=== PATIENT | female | born 1985 | race Two or more races ===

== ENCOUNTER → 2019-11-04 15:16 | Outpatient (CLI) | payer OTHER, SELFPAY ==
--- NOTE | ~2019-11-04 | US_ITS ---
EXAMINATION: US OB transvaginal DATE: 11/04/2019 15:38 INDICATION: Uncertain dates. TECHNIQUE: Real-time transvaginal pelvic ultrasound was performed. COMPARISON: None. FINDINGS: The uterus measures 10.2 x 6.8 x 7.8 cm. There is an intrauterine gestational sac. A yolk sac is jordan ntified. The crown rump length measures 1.7 cm, which correlates with an estimated gestational age of 8 weeks and 0 day(s) (+/-) 5 day(s). heart motion is identified measuring 178 beats per minute (bpm) by M-mode Doppler. There is a small subchorionic hematoma. There are nabothian cysts in the cervix. The right ovary measures 2.6 x 2.1 x 2.8 cm. The left ovary measures 2.0 x 1.1 x 1.9 cm. There is no free fluid in the pelvis. IMPRESSION: 1. Single living intrauterine gestation with estimated date of delivery of 06/15/2020. 2. Small subchorionic hematoma. Reviewed, dictated and finalized at location A.
== END ==
PROVIDERS: PCP Family Medicine; Visit Provider Obstetrics & Gynecology Gynecology
DX: O46.90 Antepartum hemorrhage, unspecified, unspecified trimester (principal); Z3A.00 Weeks of gestation of pregnancy not specified
CPT/HCPCS: 76817

== ENCOUNTER → 2019-11-18 16:13 | Outpatient (CLI) | payer OTHER, SELFPAY ==
--- NOTE | ~2019-11-18 | US_ITS ---
EXAMINATION: US OB <= 14 weeks fetus DATE: 11/18/2019 16:44 INDICATION: Subchorionic hemorrhage TECHNIQUE: Real-time transabdominal obstetric ultrasound. FINDINGS: Ultrasound dated 11/04/2019 The uterus measures 11.7 x 6.4 x 7.6 cm. There is an intrauterine gestational sac, with pole id entified. The crown rump length measures 3.59 cm.. There is a small subchorionic hemorrhage measurin g 1.7 x 0.6 x 1 cm. heart tones are identified measuring 142 BPM. IMPRESSION: 1. SL IUP with an EGA of 10 weeks, 0 days (EDC by initial ultrasound of 06/15/2020). 2: Small subchorionic hemorrhage. Reviewed, dictated and finalized at location A. IMPRESSION: 1. SL IUP with an EGA of 10 weeks, 0 days (EDC by initial ultrasound of 020). 2: Small subchorionic hemorrhage.
== END ==
PROVIDERS: Visit Provider Obstetrics & Gynecology Gynecology
DX: O36.8910 Maternal care for other specified fetal problems, first trimester, not applicable or unspecified (principal); Z3A.10 10 weeks gestation of pregnancy
CPT/HCPCS: 76801

== ENCOUNTER 2019-12-11 00:21 | Day surgery (SDC) | payer OTHER, SELFPAY ==
[2019-12-09 13:57] VITALS: BMI 64.2
--- NOTE | 2019-12-10 17:48 | WPDANESEPP ---
Anes - Eval Pre Procedure Procedure: Operation Date: 12/11/19 10:45 Proposed Procedures p Cervical Cerclage - Guru Mijares MD Date/Time: 12/10/19 17:48 Pre Op Diagnosis: incompetent cervix Patient Data Age: 34 Gender: F Height: 5 ft 1 in Weight: 154.22 kg Allergies Allergy/AdvReac Type Severity Reaction Status Date / Time almond Allergy Severe Swelling Verified 09/17/19 12:04 Home Medications Medication Instructions Recorded Confirmed Type labetalol 100 mg tablet 100 mg PO Q12H #60 tablet 11/20/19 12/09/19 Rx hkzdhiepww-sjocvotduuizl-xcbi 1 tablet PO Q6H PRN 12/09/19 12/09/19 History fluticasone propionate [Flonase 1 spray INTRANASAL DAILY PRN 12/09/19 12/09/19 History Allergy Relief] loratadine-pseudoephedrine 1 tablet PO Q12H PRN 12/09/19 12/09/19 History [Claritin-D 12 Hour] 21-iron fu-folic acid 1 tablet PO DAILY 12/09/19 12/09/19 History [ Complete] Patient hx anesthesia problems: none Family hx anesthesia problems: none PMFSH Past Medical History Medical History (Updated 12/10/19 @ 17:49 by Arnold Caceres CRNA) Hypertension IBS (irritable bowel syndrome) Morbid obesity COSME on CPAP Osteoarthritis of left knee Surgical History Surgical History History of meniscectomy of left knee History of tonsillectomy Family History Family History Mother Diabetes mellitus Grandparent Hypertension Malignant neoplasm of prostate Mother Diabetes mellitus Fibromyalgia Thrombocytopathy Grandparent Skin cancer Other Carcinoma of colon Social History Social History (System 09/17/19 @ 12:04 by Jannie Kauffman) Smoking status: Former smoker (quit 2012) Second hand tobacco smoke exposure: No Smoking end date: 08/14/10 Alcohol intake: current Substance use: never Substance use type: does not use Exam Day of Procedure 12/10/19 17:48
[2019-12-11] VITALS (11 sets, daily range): BP systolic 93–145; BP diastolic 60–91; PULSE 63–74; RESP 12–18; TEMP 36.4–36.7; O2SAT 100
[2019-12-11] MEDS: LACTATED RINGERS 1,000 ML 30 ML IV CONT (09:33)
--- NOTE | 2019-12-11 09:44 | PM.HPGS ---
History of Present Illness History of Present Illness Consent: Risks, benefits, and alternatives have been discussed and questions answered. Patient agrees to proceed with procedure. Chief complaint: incompetent cervix Narrative: . Lesvia Duckworth is a 34 year old female @ 14 weeks dated by a first trimester ultrasound. Pregancy complicated by incompetent cervix with delivery x2 , cerclage with last , morbidly obese, and chtn. Patient also had subchorionic hemorrhage on last ultrasound. [facility] Past Medical History Medical History Hypertension IBS (irritable bowel syndrome) Morbid obesity COSME on CPAP Osteoarthritis of left knee Surgical History Surgical History History of meniscectomy of left knee History of tonsillectomy Family History Family History Mother Diabetes mellitus Grandparent Hypertension Malignant neoplasm of prostate Mother Diabetes mellitus Fibromyalgia Thrombocytopathy Grandparent Skin cancer Other Carcinoma of colon Social History Social History Smoking status: Former smoker (quit 2012) Second hand tobacco smoke exposure: No Smoking end date: 08/14/10 Alcohol intake: current Substance use: never Substance use type: does not use Meds Home Medications and Allergies Home Medications Medication Instructions Recorded Confirmed Type labetalol 100 mg tablet 100 mg PO Q12H #60 tablet 11/20/19 12/09/19 Rx saiebwmzmu-fggorxxrsmmbp-jfoo 1 tablet PO Q6H PRN 12/09/19 12/09/19 History fluticasone propionate [Flonase 1 spray INTRANASAL DAILY PRN 12/09/19 12/09/19 History Allergy Relief] loratadine-pseudoephedrine 1 tablet PO Q12H PRN 12/09/19 12/09/19 History [Claritin-D 12 Hour] 21-iron fu-folic acid 1 tablet PO DAILY 12/09/19 12/09/19 History [ Complete] Allergies Allergy/AdvReac Type Severity Reaction Status Date / Time almond Allergy Severe Swelling Verified 12/11/19 09:46 Exam Const: General: no acute distress GI: GI Palp: Yes Soft to palpation Other: BSUS showed positive movement and heart beat at 160s : External Female Exam: normal external appearance Assessment and Plan Assessment and plan (1) Incompetence of cervix: Code(s): N88.3 - Incompetence of cervix uteri Status: Acute Assessment and Plan: Patient scheduled for a cerclage cervical. Risk and benefits reviewed in detail with patient. Patient agrees to proceed with surgery.
--- NOTE | 2019-12-11 09:53 | WPDANESEFPP ---
Anes - Eval Final PreProcedure Day of Procedure 12/11/19 09:53 Patient weight: super morbidly obese Heart: regular rate and rhythm Lungs: decreased breath sounds Airway: Mallampati scale class II Neurological: alert and oriented Last oral intake: >/= 8 hours ASA classification: III Emergent: no Anesthetic plan: proceed Anesthesia type and monitoring: regional spinal and standard monitoring Other findings: heart tones per Dr. Mijares Informed Consent: The patient's anesthetic plan and its attendant risks and benefits were discussed with the patient/family/POA. Questions were solicited and answers provided to the satisfaction of the patient/family/POA.
--- NOTE | 2019-12-11 11:32 | SUR.OPER ---
heart tones obtained via u/s by dr. montemayor fhts in 150s
--- NOTE | 2019-12-11 11:37 | PM.OP ---
Procedure Note - Brief Procedure Note - Brief Date of procedure: 12/11/19 Pre-op diagnosis: incompetent cervix Post-op diagnosis: same Procedure performed: blair cerclage Anesthesia: spinal Surgeon: Guru Mijares MD Estimated blood loss (mL): 10 Drains: No Packing: No Pathology: none sent Complications: None Condition: stable Disposition: observation Findings: soft cervix external os 1 cm internal os closed
[2019-12-11] MEDS: INDOMETHACIN 25 MG CAPSULE 50 MG PO (13:46)
--- NOTE | 2019-12-11 13:51 | SUR.PHASEII ---
1330 pt having abdominal cramping pain 01/21. dr horn notified but hesitant to give pt anything due to she had a spinal for anesthesia, need ok from dr montemayor. notifed dr montemayor and she gave me new orders for Indomethacin 50mg po once, then going to send her home with this for cramping.
--- NOTE | 2019-12-11 14:53 | SUR.PHASEII ---
[address] horn on pt condition of her feet tingling and not feeling anything when touching feet. this is normal takes longer then others to get ffeling back. 1450 karel bindery helper, reiterated to pt/spouse on what dr horn said.
--- NOTE | 2019-12-11 16:01 | SUR.PHASEII ---
[address] montemayor' office, dr montemayor will be sending a prescription for indomethacin to [facility] for pt to roll picker
--- NOTE | 2019-12-12 07:54 | OP_ITS ---
DATE OF PROCEDURE: 12/11/2019 PREOPERATIVE DIAGNOSIS: Incompetent cervix. POSTOPERATIVE DIAGNOSIS: Incompetent cervix. PROCEDURE PERFORMED: Maldonado cerclage. ANESTHESIA: Spinal with mild IV sedation. COMPLICATIONS: None. ESTIMATED BLOOD LOSS: 10 cc. DESCRIPTION OF PROCEDURE: The patient was taken to the operating room, IV running. After adequate anesthesia, she was placed in a dorsal lithotomy position. A vaginal weighted speculum was placed into the vagina and Ryan retractor was placed at the anterior portion of vagina for reflection of bladder. The anterior and posterior lip of the cervix was grasped with ring forceps and Mersilene tape. A stitch was placed at the 2, 11, 7, and 4 position of the cervix and this suture was tied and cut. A second suture of 2-0 silk was used to reinforce the Mersilene knot at the 2 o'clock position. The ring forceps were removed. Weighted speculum and Ryan retractors were removed, noted a small abrasion on the vaginal wall. Silver nitrate x1 was applied for hemostasis. Sponge, lap, and needle counts were correct x2. The patient tolerated the procedure well. D I MT: Odilia
== END 2019-12-11 15:50 | disposition home or self-care (01) ==
PROVIDERS: PCP Family Medicine; Visit Provider Obstetrics & Gynecology
PROC: 0UVC7ZZ Restriction of Cervix, Via Natural or Artificial Opening (ICD-10-PCS; CPT 57700; principal; 2019-12-11 10:45)
DX: O34.32 Maternal care for cervical incompetence, second trimester (principal); Z3A.14 14 weeks gestation of pregnancy; O10.012 Pre-existing essential hypertension complicating pregnancy, second trimester; O99.212 Obesity complicating pregnancy, second trimester; E66.01 Morbid (severe) obesity due to excess calories; Z87.891 Personal history of nicotine dependence
CPT/HCPCS: 59320; A9270; J2250; J2274; J2370; J2704; J3010; J7120

== ENCOUNTER 2019-12-16 14:54 | Outpatient (CLI) | payer OTHER, SELFPAY ==
--- NOTE | ~2019-12-16 | US_ITS ---
EXAMINATION: US OB limited DATE: 12/16/2019 15:35 INDICATION: Subchorionic hemorrhage. TECHNIQUE: Real-time transabdominal obstetric ultrasound. FINDINGS: Ultrasound dated 11/18/2019 The uterus measures 1.6 x 9.5 x 10 cm. There is an intrauterine gestational sac, with pole iden tified. The heart rate is 1 55 bpm. There is a small subchorionic hemorrhage anteriorly measur ing 1.4 x 1 x 1 cm. Amniotic fluid is subjectively normal. Placenta is anterior. IMPRESSION: 1. Small subchorionic hemorrhage anteriorly measuring 1.4 x 1 x 1 cm. 2: Single living intrauterine with heart rate measuring 155 BPM. Reviewed, dictated and finalized at location A. IMPRESSION: 1. Small subchorionic hemorrhage anteriorly measuring 1.4 x 1 x 1 cm. 2: Single living intrauterine with heart rate measuring 155 BP .
== END 2019-12-16 14:55 | disposition home or self-care (01) ==
PROVIDERS: PCP Family Medicine; Visit Provider Obstetrics & Gynecology Gynecology
DX: O36.8920 Maternal care for other specified fetal problems, second trimester, not applicable or unspecified (principal)
CPT/HCPCS: 76815

== ENCOUNTER 2020-01-14 15:49 | Outpatient (CLI) | payer OTHER, SELFPAY ==
--- NOTE | ~2020-01-14 | US_ITS ---
EXAMINATION: US OB /maternal detail DATE: 01/14/2020 16:39 INDICATION: anatomic survey. TECHNIQUE: Real-time ultrasound of the pelvis was performed. COMPARISON: Ultrasound 12/16/2019, 11/18/2019, 11/04/2019 FINDINGS: There is a single living fetus in variable presentation. The placenta is anterior, 1.6 cm from the c ervix. heart rate is 145 beats per minute (bpm). There is no subchorionic hematoma. The amnioti c fluid volume is subjectively normal. The following biometric data were obtained: Biparietal diameter (BPD): 4.3 cm; head circumference (HC): 16.2 cm; abdominal circumference (AC): 13 .5 cm; femur length (FL): 2.6 cm. These measurements are concordant. Estimated weight is 242 g +/- 36 g, which correlates with 67th percentile when 06/15/20 is used as estimated date of delivery. As single measurements, these parameters are each equal to the following estimated gestational ages: BPD: 18 weeks 6 days. HC: 19 weeks 0 days. AC: 19 weeks 0 days. FL: 17 weeks 6 days. estimated gestational age based solely on measurements from this exam is 18 weeks 5 days +/- 1 weeks 2 days. The cerebral ventricles, cerebellum, cisterna magna, nuchal fold, and visualized portions of the spin e are normal. The diaphragm, stomach, kidneys, and bladder are normal. There are two umbilical arteri es to yield a 3-vessel cord. The cord insertion is normal. The heart is not well-visualized. IMPRESSION: 1. Single living fetus in variable presentation. 2. Estimated weight is 242 g +/- 36 g, which correlates with 67th percentile when 06/15/20 is u sed as estimated date of delivery. This date was set by ultrasound on 11/04/19. 3. Low-lying placenta. 4. heart not well visualized. Otherwise normal anatomic survey. Reviewed, dictated and finalized at location A. IMPRESSION: 1. Single living fetus in variable presentation. 2. Estimated weight is 242 g +/- 36 g, which correlates with 67th percen tile when 06/15/20 is used as estimated date of delivery. This date was set by [facility] on 11/04/19. 3. Low-lying placenta. 4. heart not well visualized. Otherwise normal anatomic survey.
== END 2020-01-14 15:50 | disposition home or self-care (01) ==
PROVIDERS: PCP Family Medicine; Visit Provider Obstetrics & Gynecology Gynecology
DX: Z36.89 Encounter for other specified antenatal screening (principal); O44.42 Low lying placenta NOS or without hemorrhage, second trimester
CPT/HCPCS: 76805

== ENCOUNTER 2020-03-22 16:36 | Emergency (ER) | payer OTHER, SELFPAY ==
[2020-03-22 16:44] VITALS: BP 151/97; PULSE 92; RESP 17; TEMP 36.8; O2SAT 100
--- NOTE | 2020-03-22 17:17 | ED.GENADULT ---
HPI - General Adult General Chief complaint: Recheck/Abnormal Lab/Rx Stated complaint: High BP, 27 weeks Time Seen by Provider: 03/22/20 17:07 History of Present Illness HPI narrative: Headache every day for the past 4 days. bitemporal. Associated with occasional visual symptoms. Feels like her usual migraines, but more intense. She was concerned because her blood pressure has been more elevated than usual for the past 2 days. No nausea, vomiting, fever, weakness. Related Data Home Medications Medication Instructions Recorded Confirmed atxdipvvdd-feevbaiqvqkpe-wyfp 1 tablet PO Q6H PRN 12/09/19 12/11/19 fluticasone propionate [Flonase 1 spray INTRANASAL DAILY PRN 12/09/19 12/11/19 Allergy Relief] loratadine-pseudoephedrine 1 tablet PO Q12H PRN 12/09/19 12/11/19 [Claritin-D 12 Hour] 21-iron fu-folic acid 1 tablet PO DAILY 12/09/19 12/11/19 [ Complete] Allergies Allergy/AdvReac Type Severity Reaction Status Date / Time almond Allergy Severe Swelling Verified 03/22/20 16:50 Review of Systems Review of Systems: All systems reviewed & are unremarkable except as noted in HPI and below Constitutional: Constitutional: Denies fever(s) Eyes: Eyes: Reports change in vision Cardiovascular: Cardiovascular: Denies chest pain Respiratory: Respiratory: Denies dyspnea Gastrointestinal: Gastrointestinal: Denies abdominal pain, Denies nausea and Denies vomiting Genitourinary: Genitourinary: Denies hematuria and Denies dysuria [facility] Past Medical History Medical History (Updated 03/23/20 @ 00:00 by Background Daemon) Hypertension IBS (irritable bowel syndrome) Incompetence of cervix Morbid obesity COSME on CPAP Osteoarthritis of left knee Surgical History Surgical History History of meniscectomy of left knee History of tonsillectomy Social History Social History Smoking status: Former smoker (quit 2012) Second hand tobacco smoke exposure: No Smoking end date: 08/14/10 Alcohol intake: current Substance use: never Substance use type: does not use Gender identity (if verbalized by the patient): Female Exam Const: General: healthy appearing, no acute distress and alert Orientation/consciousness: patient oriented x3 HENMT: Head: normal to inspection Ears: TM's normal bilaterally Face and sinus: normal facial exam Mouth: Yes moist mucous membranes Eyes: Pupils: Equal, round and reactive pupils present EOM: EOMs intact bilaterally Resp: Effort & Inspection: normal respiratory effort Auscultation: clear to auscultation bilaterally, no rales, no rhonchi and no wheezes Cardio: Jugular venous distension: no JVD Rate: regular rate Rhythm: regular rhythm Heart sounds: no murmurs Skin: General skin exam: normal color Neuro: General: patient oriented x3, moves all extremities and CN's II-XI intact bilaterally Speech: normal speech Psych: Appearance: well kempt Affect: normal affect Course Vital Signs Vital signs: Vital Signs Temperature 36.8 C 03/22/20 16:44 Pulse Rate 92 03/22/20 16:44 Respiratory Rate 17 03/22/20 16:44 Blood Pressure 151/97 H 03/22/20 16:44 Pulse Oximetry 100 03/22/20 16:44 Temperature 36.8 C 03/22/20 16:44 Pulse Rate 90 03/22/20 19:02 Respiratory Rate 17 03/22/20 19:02 Blood Pressure 147/94 H 03/22/20 19:02 Pulse Oximetry 97 03/22/20 19:02 Medical Decision Making MDM Narrative Medical decision making narrative: VU resolved with treament. BP relatively mildly elevated. She will need recheck with PCP. Medical Records Medical records reviewed: Yes I reviewed the patient's medical records. Vital Signs Vital Signs: Vital Signs Temperature 36.8 C 03/22/20 16:44 Pulse Rate 92 03/22/20 16:44 Respiratory Rate 17 03/22/20 16:44 Blood Pressure 151/97 H 03/22/20 16:44 Pulse Ox
[2020-03-22] MEDS: METOCLOPRAMIDE HCL INJ 10 MG/2 ML VIAL IV PUSH (18:17)
[2020-03-22] MEDS: diphenhydrAMINE HCl INJ 50 MG/ML VIAL 25 MG IV PUSH (18:17)
[2020-03-22] MEDS: SODIUM CHLORIDE 0.9% IV 1,000 ML 999 ML IV CONT (18:18)
[2020-03-22 19:02] VITALS: BP 147/94; PULSE 90; RESP 17; O2SAT 97
[2020-03-22 19:35] LABS: Add Urine Microscopic? YES; Appearance Urine Cloudy (Clear); Bacteria Urine Trace /hpf; Bilirubin Urine Negative (Negative); Blood Urine Negative (Negative); Color Urine Yellow (Yellow); Glucose Urine UA Negative (Negative); Ketones Urine Trace mg/dL (Negative); Leukocyte Esterase Ur 3+ LEU/UL (Negative); Mucus Urine Rare /lpf; Nitrate Urine Negative (Negative); Protein Urine Negative (Negative); Specific Grav Ur 1.026 (1.001-1.035); Squamous Epithelial Cell Urine Many /hpf (Few); Urobilinogen Urine Negative mg/dL (<2.0); WBC Urine >75 /hpf
== END 2020-03-22 20:01 | disposition home or self-care (01) ==
PROVIDERS: Emergency Provider Emergency Medicine; PCP Family Medicine
DX: G43.909 Migraine, unspecified, not intractable, without status migrainosus (principal); E66.01 Morbid (severe) obesity due to excess calories; Z68.43 Body mass index [BMI] 50.0-59.9, adult; G47.33 Obstructive sleep apnea (adult) (pediatric); M17.12 Unilateral primary osteoarthritis, left knee; Z87.891 Personal history of nicotine dependence; R82.998 Other abnormal findings in urine
CPT/HCPCS: 81001; 87086; 87088; 96374; 96375; 99284; J0131; J1200; J2765; J7030

== ENCOUNTER 2020-04-06 18:18 | Outpatient (CLI) | payer OTHER, SELFPAY ==
[2020-04-06 18:30] VITALS: BP 145/62; PULSE 83
[2020-04-06 18:33] VITALS: BP 139/83; PULSE 80
[2020-04-06 19:02] VITALS: BP 146/65; PULSE 71
[2020-04-06 19:09] VITALS: BP 146/71
[2020-04-06 19:17] VITALS: BP 132/62; PULSE 69
[2020-04-06 19:18] LABS: Basophils Percent Auto 0.2 % (0.2-1.2); Eosinophils Absolute Auto 0.3 K/mm3 (0-0.3); Eosinophils Percent Auto 2.8 % (0-4.4); Hematocrit 32.1 % (37.0-47.0); Hemoglobin 10.1 g/dL (12.0-15.0); Immature Granulocyte Absolute 0.05 K/mm3 (0.00-0.031); Immature Granulocyte Percent A 0.5 % (0-0.5); Lymphocytes Absolute Auto 2.11 K/mm3 (0.9-3.2); Mean Corpuscular HGB Conc 31.5 g/dl (32-36); Mean Corpuscular Volume 82.5 fl (80-100); Mean Platelet Volume 10.3 fl (7.4-10.4); Monocytes Absolute Auto 0.5 K/mm3 (0.1-0.6); Monocytes Percent Auto 5.6 % (2.6-8.5); Neutrophils Absolute Auto 6.2 K/mm3 (1.3-6.7); Neutrophils Percent Auto 67.9 % (45.5-73.1); Platelet Count Result 278 k/mm3 (150-375); Red Blood Count 3.89 M/mm3 (4.2-5.4); Red Cell Distribution Width 15.8 % (11.5-14.5); White Blood Count 9.2 K/mm3 (4.5-10.0)
[2020-04-06 19:23] LABS: Creatinine Urine 39.4 mg/dL; Total Protein Urine Random 17 mg/dL
[2020-04-06 19:26] LABS: Add Urine Microscopic? YES; Appearance Urine Cloudy (Clear); Bacteria Urine 3+ /hpf; Bilirubin Urine Negative (Negative); Blood Urine 3+ (Negative); Color Urine Yellow (Yellow); Glucose Urine UA Negative (Negative); Ketones Urine Negative (Negative); Leukocyte Esterase Ur 3+ LEU/UL (NEGATIVE); Mucus Urine Rare /lpf; Nitrate Urine Negative (Negative); Protein Urine Negative (Negative); Specific Grav Ur 1.006 (1.001-1.035); Squamous Epithelial Cell Urine Many /hpf (Few); Urobilinogen Urine Negative mg/dL (<2.0); WBC Urine >75 /hpf (0-3)
[2020-04-06 19:31] VITALS: BP 128/67; PULSE 76
[2020-04-06 19:37] LABS: Alanine Aminotransferase 36 U/L (4-35); Albumin Level 3.3 g/dL (3.5-5.1); Alkaline Phosphatase 97 U/L (38-126); Anion Gap 6 mmol/L (8-16); Aspartate Amino Transferase 26 U/L (14-36); Bilirubin,Total < 0.1 mg/dL (0.2-1.3); Blood Urea Nitrogen 4 mg/dL (7-17); Calcium 8.4 mg/dL (8.4-10.2); Carbon Dioxide 20 mmol/L (22-30); Chloride 107 mmol/L (98-107); Estimated Glomerular Filt Rate > 60; Glucose 118 mg/dL (65-105); Potassium 3.5 mmol/L (3.4-5.0); Sodium 133 mmol/L (137-145); Uric Acid 4.2 mg/dL (2.5-7.5)
== END 2020-04-06 20:07 | disposition home or self-care (01) ==
LOC: ANHOBOP 18:23 → ANHOBPP 19:05
PROVIDERS: PCP Family Medicine; Visit Provider Obstetrics & Gynecology Gynecology
DX: O13.9 Gestational [pregnancy-induced] hypertension without significant proteinuria, unspecified trimester (principal); Z3A.00 Weeks of gestation of pregnancy not specified
CPT/HCPCS: 36415; 59025; 80053; 81001; 82570; 84156; 84550; 85025; 87086; 87088; 99199

== ENCOUNTER 2020-04-08 11:04 | Outpatient (CLI) | payer OTHER, SELFPAY ==
[2020-04-08 11:13] VITALS: BMI 64.3
[2020-04-08 13:23] LABS: Collection Time Urine 24 HOURS
[2020-04-08 13:31] LABS: Creatinine Urine 68.1 mg/dL; Patient Weight 340 Lbs; Total Protein Urine Random 13 mg/dL
[2020-04-08 13:38] LABS: Creatinine Clearance Urine 216.8 ml/min (75-125); Total Volume 24 Hour Urine 2500 ml
[2020-04-08 13:41] LABS: Specific Gravity Ur 1.009
[2020-04-08 16:41] LABS: Total Protein Urine 24 Hr 13 MG/DAY (28-141)
== END 2020-04-08 11:05 | disposition home or self-care (01) ==
LOC: ANHOBOP 11:10
PROVIDERS: PCP Family Medicine; Visit Provider Obstetrics & Gynecology Gynecology
DX: Z34.90 Encounter for supervision of normal pregnancy, unspecified, unspecified trimester (principal); Z3A.00 Weeks of gestation of pregnancy not specified
CPT/HCPCS: 81050; 82575; 84156

== ENCOUNTER 2020-04-27 10:09 | Observation (INO) | payer OTHER, SELFPAY ==
[2020-04-27 10:31] VITALS: BP 148/91; PULSE 73
[2020-04-27 10:37] VITALS: BMI 64.5
--- NOTE | 2020-04-27 10:37 | OBADM ---
This patient, Lesvia Duckworth, admitted to the OB room OB Post 116 for observation. Patient/family oriented to hospital policies and general routines including ID bracelet, bed and alarms, visiting hours, pain management, procedures, bathroom and other care routines, personal items, smoking policy, room service/diet, and visiting hours. Patient/Family are encouraged to report perceived risks to care and to ask questions if they do not understand what they are told or what they should do.
[2020-04-27 10:46] VITALS: BP 153/79; PULSE 74
[2020-04-27 10:54] VITALS: BP 148/84; PULSE 68
[2020-04-27] MEDS: ONDANSETRON HCL ODT 4 MG TABLET PO (10:55)
--- NOTE | 2020-04-27 11:07 | PC.NURSE ---
1044- Spoke with Dr. Garibay, Orders for ODT zofran. If patient can keep down liquids after, may be discharged to home.
--- NOTE | 2020-04-27 12:09 | PC.NURSE ---
1201- Spoke with Dr. Garibay, patient states she is feeling much better, nausea is gone. Headache still remains the same. Per Dr. Garibay patient may be discharged to home with Zofran ODT tabs X 10, patient may take Tylenol at home.
--- NOTE | 2020-05-18 09:09 | PM.OBTRLD ---
OB - Triage/Final Diagnosis Final Diagnosis (1) Nausea & vomiting: Code(s): R11.2 - Nausea with vomiting, unspecified Status: Acute (2) Dizziness: Code(s): R42 - Dizziness and giddiness Status: Acute
== END 2020-04-27 12:23 | disposition home or self-care (01) ==
PROVIDERS: Admitting Provider Obstetrics & Gynecology Gynecology; PCP Family Medicine; Visit Provider Obstetrics & Gynecology Gynecology
DX: O21.9 Vomiting of pregnancy, unspecified (principal); R42 Dizziness and giddiness; Z3A.00 Weeks of gestation of pregnancy not specified
CPT/HCPCS: 59025; A9270; G0378; G0379

== ENCOUNTER 2020-05-04 15:41 | Outpatient (RCR) | payer OTHER, SELFPAY ==
[2020-05-04 16:40] VITALS: BP 155/82; PULSE 82
[2020-05-04 17:17] LABS: Basophils Percent Auto 0.3 % (0.2-1.2); Eosinophils Absolute Auto 0.2 K/mm3 (0-0.3); Eosinophils Percent Auto 2.2 % (0-4.4); Hematocrit 33.7 % (37.0-47.0); Hemoglobin 10.6 g/dL (12.0-15.0); Immature Granulocyte Absolute 0.03 K/mm3 (0.00-0.031); Immature Granulocyte Percent A 0.3 % (0-0.5); Lymphocytes Absolute Auto 1.86 K/mm3 (0.9-3.2); Lymphocytes Percent Auto 19.8 % (18.3-44.2); Mean Corpuscular HGB Conc 31.5 g/dl (32-36); Mean Corpuscular Hemoglobin 26.8 pg (26-34); Mean Corpuscular Volume 85.1 fl (80-100); Mean Platelet Volume 10.2 fl (7.4-10.4); Monocytes Absolute Auto 0.5 K/mm3 (0.1-0.6); Monocytes Percent Auto 5.6 % (2.6-8.5); Neutrophils Absolute Auto 6.8 K/mm3 (1.3-6.7); Neutrophils Percent Auto 71.8 % (45.5-73.1); Platelet Count Result 256 k/mm3 (150-375); Red Blood Count 3.96 M/mm3 (4.2-5.4); Red Cell Distribution Width 15.7 % (11.5-14.5); White Blood Count 9.4 K/mm3 (4.5-10.0)
[2020-05-04 17:27] LABS: Alanine Aminotransferase 43 U/L (4-35); Albumin Level 3.3 g/dL (3.5-5.1); Alkaline Phosphatase 115 U/L (38-126); Anion Gap 5 mmol/L (8-16); Aspartate Amino Transferase 27 U/L (14-36); Bilirubin,Total 0.2 mg/dL (0.2-1.3); Blood Urea Nitrogen 6 mg/dL (7-17); Calcium 9.1 mg/dL (8.4-10.2); Carbon Dioxide 20 mmol/L (22-30); Chloride 107 mmol/L (98-107); Estimated Glomerular Filt Rate > 60; Glucose 110 mg/dL (65-105); Potassium 3.9 mmol/L (3.4-5.0); Sodium 132 mmol/L (137-145); Uric Acid 3.8 mg/dL (2.5-7.5)
[2020-05-04 17:46] LABS: Add Urine Microscopic? YES; Appearance Urine Cloudy (Clear); Bacteria Urine Trace /hpf; Bilirubin Urine Negative (Negative); Blood Urine Negative (Negative); Color Urine Straw (Yellow); Glucose Urine UA Negative (Negative); Ketones Urine Negative (Negative); Leukocyte Esterase Ur 2+ LEU/UL (NEGATIVE); Mucus Urine Rare /lpf; Nitrate Urine Negative (Negative); Protein Urine 1+ mg/dL (Negative); RBC Urine 0-2 /hpf (0-2); Squamous Epithelial Cell Urine Moderate /hpf (Few); Urobilinogen Urine Negative mg/dL (<2.0); WBC Urine 51-75 /hpf (0-3)
[2020-05-04 17:51] LABS: Creatinine Urine 26.6 mg/dL; Total Protein Urine Random 13 mg/dL
== END 2020-05-29 14:40 | disposition home or self-care (01) ==
LOC: ANHOBOP 15:41
PROVIDERS: PCP Family Medicine; Visit Provider Obstetrics & Gynecology
DX: O09.293 Supervision of pregnancy with other poor reproductive or obstetric history, third trimester (principal); Z3A.34 34 weeks gestation of pregnancy
CPT/HCPCS: 36415; 59025; 80053; 81001; 82570; 84156; 84550; 85025; 87086; 87088

== ENCOUNTER 2020-05-07 13:41 | Outpatient (CLI) | payer OTHER, SELFPAY ==
[2020-05-07 16:00] VITALS: BMI 67.2
[2020-05-07 16:31] LABS: Collection Time Urine 24 HOURS
[2020-05-07 16:36] LABS: Patient Weight 356 Lbs; Total Volume 24 Hour Urine 3300 ml
[2020-05-07 16:39] LABS: Creatinine Clearance Urine 245.2 ml/min (75-125); Creatinine Urine 59.5 mg/dL
[2020-05-07 18:35] LABS: Total Protein Urine 24 Hr 373 mg/24hr (0-149); Total Protein Urine Random 11.3 mg/dL (0.0-11.9)
== END 2020-05-07 13:42 | disposition home or self-care (01) ==
LOC: ANHOBOP 13:43
PROVIDERS: PCP Family Medicine; Visit Provider Obstetrics & Gynecology
DX: Z34.90 Encounter for supervision of normal pregnancy, unspecified, unspecified trimester (principal); R03.0 Elevated blood-pressure reading, without diagnosis of hypertension; Z3A.00 Weeks of gestation of pregnancy not specified
CPT/HCPCS: 81050; 82575; 84156

== ENCOUNTER 2020-05-25 23:08 | Observation (INO) | payer OTHER, SELFPAY ==
[2020-05-26 02:22] VITALS: BMI 66.2
--- NOTE | 2020-06-12 15:52 | PM.OBTRLD ---
OB - Triage/Final Diagnosis Final Diagnosis (1) False labor: Code(s): O47.9 - False labor, unspecified Status: Acute
== END 2020-05-26 01:52 | disposition home or self-care (01) ==
PROVIDERS: Admitting Provider Obstetrics & Gynecology; PCP Family Medicine; Visit Provider Obstetrics & Gynecology
DX: O47.9 False labor, unspecified (principal); Z3A.00 Weeks of gestation of pregnancy not specified
CPT/HCPCS: G0378; G0379

== ENCOUNTER 2020-05-28 15:42 | Inpatient (IN) | payer OTHER, SELFPAY ==
[2020-05-28] VITALS (73 sets, daily range): BP systolic 87–178; BP diastolic 56–107; PULSE 62–90; RESP 18; TEMP 36.3–36.4; O2SAT 97–100; BMI 67.0
[2020-05-28 17:11] LABS: Basophils Percent Auto 0.2 % (0.2-1.2); Eosinophils Absolute Auto 0.2 K/mm3 (0-0.3); Eosinophils Percent Auto 1.9 % (0-4.4); Hematocrit 32.3 % (37.0-47.0); Hemoglobin 10.3 g/dL (12.0-15.0); Immature Granulocyte Absolute 0.04 K/mm3 (0.00-0.031); Immature Granulocyte Percent A 0.5 % (0-0.5); Lymphocytes Absolute Auto 1.56 K/mm3 (0.9-3.2); Lymphocytes Percent Auto 18.3 % (18.3-44.2); Mean Corpuscular HGB Conc 31.9 g/dl (32-36); Mean Corpuscular Hemoglobin 27.2 pg (26-34); Mean Corpuscular Volume 85.4 fl (80-100); Mean Platelet Volume 9.8 fl (7.4-10.4); Monocytes Absolute Auto 0.5 K/mm3 (0.1-0.6); Monocytes Percent Auto 6.3 % (2.6-8.5); Neutrophils Absolute Auto 6.2 K/mm3 (1.3-6.7); Neutrophils Percent Auto 72.8 % (45.5-73.1); Platelet Count Result 274 k/mm3 (150-375); Red Blood Count 3.78 M/mm3 (4.2-5.4); Red Cell Distribution Width 15.9 % (11.5-14.5); White Blood Count 8.5 K/mm3 (4.5-10.0)
--- NOTE | 2020-05-28 17:20 | LDADM ---
This patient, Lesvia Duckworth, was admitted to Labor/Delivery/Recovery 106 on 05/28/20 at 15:42. Plans for labor, pain management and were discussed with patient. Patient/family oriented to hospital policies and general routines including ID bracelet, bed and alarms, visiting hours, pain management, procedures, bathroom and other care routines, personal items, smoking policy, room service/diet and guest tray routines, security routines, and visiting hours. Patient/Family are encouraged to report perceived risks to care and to ask questions if they do not understand what they are told or what they should do. See OBIX for further documentation.
[2020-05-28 17:23] LABS: Uric Acid 4.3 mg/dL (2.5-7.5)
[2020-05-28 17:24] LABS: Alanine Aminotransferase 54 U/L (4-35); Albumin Level 3.4 g/dL (3.5-5.1); Alkaline Phosphatase 141 U/L (38-126); Anion Gap 7 mmol/L (8-16); Aspartate Amino Transferase 36 U/L (14-36); Bilirubin,Total 0.2 mg/dL (0.2-1.3); Blood Urea Nitrogen 8 mg/dL (7-17); Carbon Dioxide 25 mmol/L (22-30); Chloride 105 mmol/L (98-107); Estimated Glomerular Filt Rate > 60; Glucose 97 mg/dL (65-105); Potassium 4.4 mmol/L (3.4-5.0); Sodium 137 mmol/L (137-145)
[2020-05-28] MEDS: OXYTOCIN 30 UNITS/NS 500 ML 30 UNITS/500 ML BAG IV CONT (17:32)
[2020-05-28] MEDS: LACTATED RINGERS 1,000 ML 125 ML IV CONT ×2 (17:33→22:16)
[2020-05-28 18:05] LABS: HIV 1/2 Ab P24 Ag Result Negative (Negative)
[2020-05-28] MEDS: LABETALOL HCL 100 MG TABLET 200 MG PO (18:09)
--- NOTE | 2020-05-28 21:02 | WPDANESEPPF ---
Anes - Initial Pre Proc Eval Procedure: labor epidural Date/Time: 05/28/20 21:02 Surgeon: Mary Garibay MD Pre Op Diagnosis: labor pain Pre Op Diagnosis: Induction of Labor Patient Data Age: 35 Gender: F Height: 1.55 m Weight: 161 kg Last Vital Signs Temp 36.3 C L 05/28/20 18:00 Pulse 75 05/28/20 21:01 BP 149/82 H 05/28/20 21:01 Allergies Allergy/AdvReac Type Severity Reaction Status Date / Time almond Allergy Severe Swelling Verified 03/22/20 16:50 Home Medications Medication Instructions Recorded Confirmed Type Claritin-D 12 Hour 1 tablet PO Q12H PRN 12/09/19 05/15/20 History Complete 1 tablet PO DAILY 12/09/19 05/28/20 History fluticasone propionate [Flonase 1 spray INTRANASAL DAILY PRN 12/09/19 05/28/20 History Allergy Relief] labetalol 200 mg PO TID 04/06/20 05/28/20 History aspirin [Aspirin Low Dose] 81 mg PO BID 05/26/20 05/28/20 History Laboratory Tests 05/28/20 05/28/20 05/28/20 17:02 17:02 17:02 WBC 8.5 K/mm3 K/mm3 (4.5-10.0) RBC 3.78 M/mm3 L M/mm3 (4.2-5.4) Hgb 10.3 g/dL L g/dL (12.0-15.0) Hct 32.3 % L % (37.0-47.0) MCV 85.4 fl fl (80-100) MCH 27.2 pg pg (26-34) MCHC 31.9 g/dl L g/dl (32-36) RDW 15.9 % H % (11.5-14.5) Plt Count 274 k/mm3 k/mm3 (150-375) MPV 9.8 fl fl (7.4-10.4) Immature Gran % (Auto) 0.5 % % (0-0.5) Neut % (Auto) 72.8 % % (45.5-73.1) Lymph % (Auto) 18.3 % % (18.3-44.2) Wilson % (Auto) 6.3 % % (2.6-8.5) Eos % (Auto) 1.9 % % (0-4.4) Baso % (Auto) 0.2 % % (0.2-1.2) Lymph # (Auto) 1.56 K/mm3 K/mm3 (0.9-3.2) Wilson # (Auto) 0.5 K/mm3 K/mm3 (0.1-0.6) Eos # (Auto) 0.2 K/mm3 K/mm3 (0-0.3) Baso # (Auto) 0.0 K/mm3 K/mm3 (0.0-0.1) Abs Immat Gran (auto) 0.04 K/mm3 H K/mm3 (0.00-0.031) Absolute Neuts (auto) 6.2 K/mm3 K/mm3 (1.3-6.7) Absolute Nucleated RBC 0.0 K/mm3 K/mm3 (0.0-0.012) Nucleated RBC % 0.0 % % (0.0-0.2) Sodium Potassium Chloride Carbon Dioxide Anion Gap BUN Creatinine Estim Creat Clear Calc Estimated GFR Glucose Uric Acid Calcium Total Bilirubin AST ALT Alkaline Phosphatase Total Protein Albumin RPR Pending HIV 1&2 Ab/P24 Ag 4thGn Negative (Negative) Blood Type Antibody Screen 05/28/20 05/28/20 05/28/20 17:02 17:02 17:02 WBC RBC Hgb Hct MCV MCH MCHC RDW Plt Count MPV Immature Gran % (Auto) Neut % (Auto) Lymph % (Auto) Wilson % (Auto) Eos % (Auto) Baso % (Auto) Lymph # (Auto) Wilson # (Auto) Eos # (Auto) Baso # (Auto) Abs Immat Gran (auto) Absolute Neuts (auto) Absolute Nucleated RBC Nucleated RBC % Sodium 137 mmol/L mmol/L (137-145) Potassium 4.4 mmol/L mmol/L (3.4-5.0) Chloride 105 mmol/L mmol/L (98-107) Carbon Dioxide 25 mmol/L mmol/L (22-30) Anion Gap 7 mmol/L L mmol/L (8-16) BUN 8 mg/dL mg/dL (7-17) Creatinine 0.50 mg/dL L mg/dL (0.7-1.0) Estim Creat Clear Calc Not Reportable Estimated GFR > 60 (59 - ) Glucose 97 mg/dL mg/dL (65-105) Uric Acid 4.3 mg/dL mg/dL (2.5-7.5) Calcium 9.0 mg/dL mg/dL (8.4-10.2) Total Bilirubin 0.2 mg/dL mg/dL (0.2-1.3)
[2020-05-29] VITALS (171 sets, daily range): BP systolic 111–187; BP diastolic 52–119; PULSE 59–124; RESP 18; TEMP 36.2–36.9; O2SAT 94–100
[2020-05-29 00:06] LABS: Glucose Point of Care 96 (65-105)
[2020-05-29] MEDS: LABETALOL HCL 100 MG TABLET 200 MG PO ×3 (02:04→19:03)
[2020-05-29 04:14] LABS: Glucose Point of Care 82 (65-105)
[2020-05-29] MEDS: LACTATED RINGERS 1,000 ML 125 ML IV CONT (08:22)
[2020-05-29 09:28] LABS: Glucose Point of Care 80 (65-105)
--- NOTE | 2020-05-29 10:57 | WPDOBADMIT ---
Obstetrics - Admit Note Admission Note: record reviewed. No pertinent additions to the history and/or any subsequent changes in the physical findings that are not consistent with the expected course of the were found. Additions to the history and/or subsequent changes in the physical findings follow. Here from office last pm with BP 170/114 from MIL. Now 5-6/70/-2 anterior AROM with clear fluid. FHTs reactive. BP stable. Labs with mildly elevated LFTs MIL to continue.
[2020-05-29 11:20] LABS: Rapid Plasma Reagin Non-Reactive (NonReactive)
[2020-05-29 12:49] LABS: Glucose Point of Care 79 (65-105)
[2020-05-29 13:17] LABS: Glucose Point of Care 81 (65-105)
[2020-05-29 14:18] LABS: Glucose Point of Care 83 (65-105)
[2020-05-29 15:49] LABS: Glucose Point of Care 84 (65-105)
[2020-05-29] MEDS: OXYTOCIN 30 UNITS/NS 500 ML 30 UNITS/500 ML BAG 999 UNITS IV CONT (18:16)
--- NOTE | 2020-05-29 18:21 | PM.OBPRVD ---
OB - Delivery Note Procedure Delivery date: 05/29/20 Procedure: events: Gestational Diabetes (GDMA1), Pre-Eclampsia (CHTN with superimposed pre-e) and Labor Induction Intrapartal events: None Induction method: AROM and per pitocin protocol Delivery monitor: external FHT and internal uterine Route of delivery: Laceration description: Perineal - 1st Degree Delivery repair: vicryl (3-0 vicryl) Specimen: Yes (placenta) Estimated blood loss (mL): 100 Anesthesia type: Epidural Disposition: floor [place] Baby Date of : 05/29/20 Weeks of gestation at delivery: 27 Infant gender: Male presentation: vertex cord vessel description: 3 Vessels score one minute: 9 score five minutes: 9
--- NOTE | 2020-05-29 18:23 | P.DS_ITS ---
DS: Admitting Diagnosis Admitting Diagnosis Admitting Diagnosis: Induction of Labor 37 4/7 weeks CHTN with superimposed preeclampsia GDMA1 chronic proteinuria s/p cerclage with removal due to cervical incompetence DS: Discharge Diagnosis Discharge Diagnosis (1) 37 weeks gestation of : Code(s): Z3A.37 - 37 weeks gestation of Status: Acute (2) Pre-eclampsia superimposed on chronic hypertension: Code(s): O11.9 - Pre-existing hypertension with pre-eclampsia, unspecified trimester Status: Acute (3) Proteinuria: Code(s): R80.9 - Proteinuria, unspecified Status: Acute (4) GDM, class A1: Code(s): O24.410 - Gestational diabetes mellitus in , diet controlled Status: Acute (5) Incompetence of cervix: Code(s): N88.3 - Incompetence of cervix uteri Status: Acute (6) Morbid obesity: Code(s): E66.01 - Morbid (severe) obesity due to excess calories Status: Acute OB - DS: Summary OB Procedures : Cerclage, NST and Ultrasound OB Procedures Intrapartum: Spontaneous Vag Delivery OB Procedures: : None Peripartum Data Delivery Method: Natural Vaginal Laceration description: Perineal - 1st Degree complications: none Status at Discharge Functional status at discharge: independent ambulation Overall status at discharge: patient is progressing back to baseline Time Spent with Patient Time attestation: Total time spent providing and/or coordinating discharge services: DS: Data Data Completed and Pending Labs on day of discharge: Labs from last 24 hours 05/29/20 05/29/20 05/29/20 15:40 14:10 13:10 POC Capillary Glucose 84 83 81 RPR 05/29/20 05/29/20 05/29/20 11:27 08:21 04:03 POC Capillary Glucose 79 80 82 RPR 05/29/20 05/28/20 00:04 17:02 POC Capillary Glucose 96 RPR Non-reactive Discharge Plan Discharge Attending physician on discharge: Mary Garibay Discharging Clinician: Mary Garibay Anticipated Discharge Date/Time: 06/01/20 18:27 Patient Disposition: Home, Self-Care Activity: may shower, may drive after 2 weeks and pelvic rest Diet: regular Patient Instructions: Antibiotic Form Stand Alone Forms: General Discharge Information Follow-up/Referrals: Mary Garibay MD [Physician] - 1 Week (1 week BP check and 6 week pp check) Discharge Medications: Continued Complete 14 mg iron- 400 mcg Tablet 1 tablet PO DAILY RF: 0 Claritin-D 12 Hour 5-120 mg Tablet Extended Release 12 Hr 1 tablet PO Q12H PRN (Reason: Allergic Symptoms) RF: 0 fluticasone propionate [Flonase Allergy Relief] 50 mcg/actuation [place],Suspension 1 spray INTRANASAL DAILY PRN (Reason: Allergy Symptoms) RF: 0 labetalol 100 mg tablet 200 mg PO TID RF: 0 Discontinued aspirin [Aspirin Low Dose] 81 mg Tablet,Delayed Release (Dr/Ec) 81 mg PO BID RF: 0 Date of admission: 05/28/20 15:42 Primary Care Provider: Linda Adair Admitting Provider: Mary Garibay Attending physician on admission: Mary Garibay Condition: Stable Care Plan Goals: Plans condoms until vasectomy is done and neg.
[2020-05-29] MEDS: IBUPROFEN 600 MG TABLET PO (19:05)
[2020-05-29] MEDS: OXYTOCIN 30 UNITS/NS 500 ML 30 UNITS/500 ML BAG 125 UNITS IV CONT (19:05)
[2020-05-29] MEDS: BENZOCAINE 20% AER SPR (*SP) 56 GM CAN 1 SPRAY TOPICAL (20:50)
[2020-05-29] MEDS: WITCH HAZEL 40 PADS 1 PAD TOPICAL (20:50)
--- NOTE | 2020-05-29 20:50 | OBPPTRN ---
Patient transferred to post room #279 via wheelchair. Support person present. Oriented to unit, room, information board, rooming in, admission packet and security measures. Patient verbalizes understanding.
[2020-05-29] MEDS: ACETAMINOPHEN 325 MG TABLET 650 MG PO (21:32)
[2020-05-30] VITALS (7 sets, daily range): BP systolic 127–150; BP diastolic 55–90; PULSE 66–75; RESP 16–18; TEMP 36.3–37.2; O2SAT 10–100
[2020-05-30] MEDS: IBUPROFEN 600 MG TABLET PO ×2 (04:47→12:43)
[2020-05-30 04:49] LABS: Hematocrit 29.8 % (37.0-47.0); Hemoglobin 9.5 g/dL (12.0-15.0)
[2020-05-30] MEDS: LABETALOL HCL 100 MG TABLET 200 MG PO ×3 (07:38→21:42)
[2020-05-30] MEDS: DOCUSATE SODIUM 100 MG CAPSULE PO ×2 (07:38→18:27)
[2020-05-30] MEDS: POLYSACCHARIDE IRON COMPLEX 150 MG CAPSULE PO ×2 (07:38→18:27)
--- NOTE | 2020-05-30 08:11 | WPDANLDPN2 ---
Anes-Prog Note L&D Date/Time: 05/30/20 08:11 Comfortable throughout: labor and delivery Neuraxial method: epidural Epidural/Spinal procedure site: clean & non-tender Neuro status: Neuro function grossly intact. Cardiovascular status: normal Respiratory status: normal Airway patency: baseline Mental status: baseline Post-Op hydration status: normal Vital Signs: Last Vital Signs Temp 36.9 C 05/29/20 20:50 Pulse 73 05/30/20 04:00 Resp 18 05/29/20 20:50 BP 133/87 05/30/20 04:00 Pulse Ox 97 05/29/20 20:50 Pain score (VAS): 2 I/O: Intake & Output 05/29/20 05/30/20 05/30/20 23:59 07:59 15:59 Intake Total 2000 Output Total 300 Balance 1700 Patient feedback: Patient satisfied with anesthetic care.
--- NOTE | 2020-05-30 12:22 | PM.OBPNVD ---
OB - PN: Subj Subjective Date/time seen: 05/30/20 12:22 Interval history: No PIH symptoms Patient comments: no complaints and pain well controlled [place] baby status: doing well OB - PN: Obj Data Labs CBC & Chem 7: 05/30/20 04:38 05/28/20 17:02 Labs: Laboratory Results - last 24 hr 05/29/20 05/29/20 05/29/20 11:27 13:10 14:10 Hgb Hct POC Capillary Glucose 79 81 83 05/29/20 05/30/20 15:40 04:38 Hgb 9.5 L Hct 29.8 L POC Capillary Glucose 84 OB - PN A/P Assessment and Plan (1) (normal spontaneous vaginal delivery): Code(s): O80 - Encounter for full-term uncomplicated delivery Status: Acute Assessment and Plan: continue rountine pp care (2) Pre-eclampsia superimposed on chronic hypertension: Code(s): O11.9 - Pre-existing hypertension with pre-eclampsia, unspecified trimester Status: Acute Assessment and Plan: BP quite high last pm without symptoms (up to 187/111). No call from RN. Since mn, improved BP with 130's/75-87. No diuresis yet. Continue to monitor I/O's and BP's. Continue labetalol. Time Spent With Patient Time: Total time spent is greater than 50% in coordination of care (as documented) at patient's floor/unit and/or counseling patient: Exam : Bimanual exam- vagina & uterus: other (Uterus firm, nt @U)
[2020-05-30] MEDS: BENZOCAINE 20% AER SPR (*SP) 56 GM CAN 1 SPRAY TOPICAL (14:52)
[2020-05-31] VITALS: BP 146/88; PULSE 69
[2020-05-31] MEDS: IBUPROFEN 600 MG TABLET PO (04:23)
[2020-05-31 04:25] VITALS: BP 145/87; PULSE 73
[2020-05-31 05:54] VITALS: PULSE 73
[2020-05-31] MEDS: LABETALOL HCL 100 MG TABLET 200 MG PO (05:54)
--- NOTE | 2020-05-31 07:35 | PM.OBPNVD ---
OB - PN: Subj Subjective Date/time seen: 05/31/20 07:35 Interval history: No PIH symptoms Patient comments: no complaints and pain well controlled [place] baby status: doing well OB - PN: Obj Data Labs CBC & Chem 7: 05/30/20 04:38 05/28/20 17:02 OB - PN A/P Assessment and Plan (1) Pre-eclampsia superimposed on chronic hypertension: Code(s): O11.9 - Pre-existing hypertension with pre-eclampsia, unspecified trimester Status: Acute Assessment and Plan: BP stable over last 24 hours. Over last 8 hours starting diuresis. Continue Labetalol and f/u 1 wk BP check. Call if PIH sx. Plan day: 2 Plan: routine care and discharge home Comments: Plans vasectomy and condoms until done Time Spent With Patient Time: Total time spent is greater than 50% in coordination of care (as documented) at patient's floor/unit and/or counseling patient: Exam : Bimanual exam- vagina & uterus: other (Uterus firm, nt @U)
[2020-05-31 08:55] VITALS: BP 155/96; PULSE 83; RESP 20; TEMP 36.3
[2020-05-31] MEDS: DOCUSATE SODIUM 100 MG CAPSULE PO (08:58)
[2020-05-31] MEDS: POLYSACCHARIDE IRON COMPLEX 150 MG CAPSULE PO (08:58)
--- NOTE | 2020-05-31 09:00 | PC.NURSE ---
Patient received instruction on viewing the discharge video Mother & Baby Care, The First Two Weeks online. Patient was given the opportunity and encouraged to ask questions. Patient verbalized understanding of information shared and has been given the mother/baby guide for home reference.
[2020-06-01 10:14] VITALS: BP 154/85; RESP 20; TEMP 37.8; O2SAT 99
== END 2020-05-31 10:25 | disposition home or self-care (01) | DRG 807 ==
LOC: ANHLDR 05-29 18:27 → ANHOB2 05-29 21:02
PROVIDERS: Admitting Provider Obstetrics & Gynecology Gynecology; PCP Family Medicine; Visit Provider Obstetrics & Gynecology Gynecology
DX: O11.4 Pre-existing hypertension with pre-eclampsia, complicating childbirth (principal); Z37.0 Single live birth; Z3A.37 37 weeks gestation of pregnancy; O70.0 First degree perineal laceration during delivery; O24.429 Gestational diabetes mellitus in childbirth, unspecified control; E66.01 Morbid (severe) obesity due to excess calories; O99.62 Diseases of the digestive system complicating childbirth; K58.9 Irritable bowel syndrome, unspecified; M17.12 Unilateral primary osteoarthritis, left knee; G47.33 Obstructive sleep apnea (adult) (pediatric)
CPT/HCPCS: 36415; 80053; 84550; 85014; 85018; 85025; 86592; 86703; 86850; 86900; 86901; 88307; A9270; G0432; J2590; J7120

== ENCOUNTER → 2020-12-16 14:46 | Outpatient (CLI) | payer OTHER, SELFPAY ==
--- NOTE | ~2020-12-16 | US_ITS ---
EXAMINATION: US pelvic complete w TV DATE: 12/16/2020 15:21 INDICATION: Abnormal uterine bleeding. TECHNIQUE: Multiple transabdominal and transvaginal sonographic images of the pelvis were obtained. COMPARISON: Ultrasound 01/14/2020 FINDINGS: TRANSABDOMINAL ULTRASOUND: The uterus measures 9.8 x 5.4 x 4.8 cm. There is no free fluid in the pelvis. TRANSVAGINAL ULTRASOUND: The endometrial complex measures 10 mm in thickness. The right ovary measures 1.7 x 1.1 x 1.5 cm. The left ovary measures 2.2 x 1.2 x 1.7 cm. There is normal vascular flow in the ovaries. IMPRESSION: 1. Normal pelvis. Reviewed, dictated and finalized at location A. IMPRESSION: 1. Normal pelvis.
== END ==
PROVIDERS: PCP Family Medicine; Visit Provider Nurse Practitioner
DX: N93.8 Other specified abnormal uterine and vaginal bleeding (principal)
CPT/HCPCS: 76830; 76856

== ENCOUNTER 2021-05-28 12:27 | Emergency (ER) | payer OTHER, SELFPAY ==
--- NOTE | ~2021-05-28 | US_ITS ---
EXAMINATION: US soft tissue buttock LT EXAM DATE: 05/28/2021 13:53 INDICATION: edema, erythema, abscess? TECHNIQUE: Multiple grayscale and Doppler images of the symptomatic left buttock region were obtained (by a technologist who performed the scan) and subsequently reviewed. There is no prior study for c omparison. FINDINGS: Scanning in the area of clinical concern demonstrates heterogeneous complex subcutaneous region measu ring 1.1 x 1.5 x 1.8 cm with mild hypervascularity. Could be phlegmon. No drainable abscess identifie d. IMPRESSION: Focal subcutaneous nonspecific heterogeneous region, could be phlegmon given history prov ided. No drainable abscess. Reviewed, dictated and finalized at location B. IMPRESSION: Focal subcutaneous nonspecific heterogeneous region, could be phleg mon given history provided. No drainable abscess.
[2021-05-28 12:32] VITALS: BP 181/103; PULSE 89; RESP 16; TEMP 36.3; O2SAT 100
--- NOTE | 2021-05-28 12:40 | PC.NURSE ---
Pt. [place] suicide severity reassessment performed through translation via status device with their language. Pt. is a no risk.
--- NOTE | 2021-05-28 13:48 | ED.SKABFB ---
HPI - Skin/Abscess/Foreign Bdy General Chief complaint: Skin/Abscess/Foreign Body <Yoselin Klein PA-C - Last Filed: 05/28/21 15:55> Stated complaint: L BUTTOCK BOIL <Yoselin Klein PA-C - Last Filed: 05/28/21 15:55> Time Seen by Provider: 05/28/21 13:11 <IGLESIA Gonsalez Last Filed: 05/28/21 15:55> Source: patient <IGLESIA Gonsalez Last Filed: 05/28/21 15:55> Mode of arrival: ambulatory <IGLESIA Gonsalez Last Filed: 05/28/21 15:55> Limitations: no limitations <IGLESIA Gonsalez Last Filed: 05/28/21 15:55> History of Present Illness HPI narrative: This is a 36-year-old female that presents to the emergency department for redness and swelling of her left buttock noted over the last 3 days. Reports she was seen in urgent care for this and started on Bactrim. Reports continued redness, swelling and pain. Denies fever or drainage. <IGLESIA Gonsalez Last Filed: 05/28/21 15:55> Related Data Home medications: Home Medications Medication Instructions Recorded Confirmed Claritin-D 12 Hour 1 tablet PO Q12H PRN 12/09/19 04/13/21 fluticasone propionate [Flonase 1 spray INTRANASAL DAILY PRN 12/09/19 04/13/21 Allergy Relief] cholecalciferol (vitamin D3) 50 50 mcg PO .twice weekly cap 04/13/21 04/13/21 mcg (2,000 unit) capsule escitalopram oxalate 10 mg tablet 15 mg PO DAILY tablet 04/13/21 04/13/21 ferrous sulfate 325 mg (65 mg 325 mg PO DAILY 04/13/21 04/13/21 iron) tablet norgestimate-ethinyl estradiol tablet 05/28/21 [Sprintec (28)] sulfamethoxazole-trimethoprim tablet 05/28/21 <IGLESIA Gonsalez Last Filed: 05/28/21 15:55> Allergies/Adverse reactions: Allergies Allergy/AdvReac Type Severity Reaction Status Date / Time almond Allergy Severe Swelling Verified 05/28/21 12:36 <Yoselin Klein PA-C - Last Filed: 05/28/21 15:55> Review of Systems Review of Systems: CONSTITUTIONAL: Denies fever SKIN: Reports redness and swelling <Yoselin Klein PA-C - Last Filed: 05/28/21 15:55> All systems reviewed & are unremarkable except as noted in HPI and below <Yoselin Klein PA-C - Last Filed: 05/28/21 15:55> [facility] Past Medical History Medical History: Medical History False labor Hypertension IBS (irritable bowel syndrome) Incompetence of cervix Morbid obesity COSME on CPAP Osteoarthritis of left knee <Yoselin Klein PA-C - Last Filed: 05/28/21 15:55> Surgical History Surgical History: Surgical History History of meniscectomy of left knee History of tonsillectomy <Yoselin Klein PA-C - Last Filed: 05/28/21 15:55> Family History Family History: Family History Mother Diabetes mellitus Grandparent Hypertension Malignant neoplasm of prostate Mother Diabetes mellitus Fibromyalgia Thrombocytopathy Grandparent Skin cancer Other Carcinoma of colon <Yoselin Klein PA-C - Last Filed: 05/28/21 15:55> Social History Social History: Social History (Updated 04/13/21 @ 09:05 by Ju Murguia [facility]) Smoking status: Never smoker Second hand tobacco smoke exposure: No Smoking end date: 08/14/10 Alcohol intake: never Substance use: never Substance use type: does not use Gender identity (if verbalized by the patient): Female Spiritual care concerns: No <IGLESIA Gonsalez Last Filed: 05/28/21 15:55> Exam Narrative: GENERAL: Well-appearing, obese, and in no acute distress. HEAD: Normocephalic, atraumatic. EYES: EOMI. CHEST: No respiratory distress. HEART: Regular rate EXTREMITIES: Normal range of motion. No edema. Left buttock with mild-moderate area of erythema and induration, no fluctuance to suggest abscess SKIN: Warm, dry, no rash. NEURO: No focal defi
[2021-05-28 14:07] VITALS: BP 156/105; PULSE 71; RESP 12; O2SAT 98
[2021-05-28 14:39] LABS: Basophils Percent Auto 0.3 % (0.2-1.2); Eosinophils Absolute Auto 0.3 K/mm3 (0-0.3); Eosinophils Percent Auto 2.5 % (0-4.4); Hematocrit 33.7 % (37.0-47.0); Hemoglobin 10.2 g/dL (12.0-15.0); Immature Granulocyte Absolute 0.05 K/mm3 (0.00-0.031); Immature Granulocyte Percent A 0.4 % (0-0.5); Lymphocytes Absolute Auto 1.61 K/mm3 (0.9-3.2); Lymphocytes Percent Auto 14.1 % (18.3-44.2); Mean Corpuscular HGB Conc 30.3 g/dl (32-36); Mean Corpuscular Hemoglobin 24.2 pg (26-34); Mean Platelet Volume 9.3 fl (7.4-10.4); Monocytes Absolute Auto 0.5 K/mm3 (0.1-0.6); Monocytes Percent Auto 4.3 % (2.6-8.5); Neutrophils Percent Auto 78.4 % (45.5-73.1); Platelet Count Result 330 k/mm3 (150-375); Red Blood Count 4.21 M/mm3 (4.2-5.4); Red Cell Distribution Width 17.5 % (11.5-14.5); White Blood Count 11.5 K/mm3 (4.5-10.0)
[2021-05-28 15:02] LABS: Anion Gap 7 mmol/L (8-16); Blood Urea Nitrogen 10 mg/dL (7-17); Calcium 8.7 mg/dL (8.4-10.2); Carbon Dioxide 27 mmol/L (22-30); Chloride 104 mmol/L (98-107); Estimated CRCL calculation 125 ml/min; Estimated Glomerular Filt Rate > 60; Glucose 94 mg/dL (65-110); Sodium 138 mmol/L (137-145)
[2021-05-28 15:12] LABS: CRP 13.3 mg/dL (<1.0)
[2021-05-28 15:26] LABS: Erythrocyte Sedimentation Rate > 140 mm/hr (0-20)
[2021-05-28] MEDS: CLINDAMYCIN 900 MG/D5W 50 ML 900 MG/50 ML PIGGYBACK 50 MG IVPB (16:12)
[2021-05-28 16:39] VITALS: BP 150/101; PULSE 68; RESP 16; O2SAT 100
[2021-05-28 17:27] VITALS: BP 151/101; PULSE 66; RESP 18; O2SAT 100
== END 2021-05-28 17:29 | disposition home or self-care (01) ==
PROVIDERS: Physician Assistant; Emergency Provider Emergency Medicine; PCP Family Medicine
DX: L03.317 Cellulitis of buttock (principal); I10 Essential (primary) hypertension; K58.9 Irritable bowel syndrome, unspecified; G47.33 Obstructive sleep apnea (adult) (pediatric); E66.01 Morbid (severe) obesity due to excess calories; Z68.44 Body mass index [BMI] 60.0-69.9, adult; M17.12 Unilateral primary osteoarthritis, left knee
CPT/HCPCS: 36415; 76705; 80048; 81025; 85025; 85652; 86140; 96365; 96366; 99284

== ENCOUNTER 2021-05-31 08:21 | Emergency (ER) | payer OTHER, SELFPAY ==
[2021-05-31 08:28] VITALS: BP 168/89; PULSE 87; RESP 16; TEMP 36.9; O2SAT 98
[2021-05-31 09:05] LABS: Basophils Percent Auto 0.4 % (0.2-1.2); Eosinophils Absolute Auto 0.3 K/mm3 (0-0.3); Eosinophils Percent Auto 4.4 % (0-4.4); Hematocrit 32.2 % (37.0-47.0); Hemoglobin 9.6 g/dL (12.0-15.0); Immature Granulocyte Absolute 0.04 K/mm3 (0.00-0.031); Immature Granulocyte Percent A 0.6 % (0-0.5); Lymphocytes Percent Auto 17.2 % (18.3-44.2); Mean Corpuscular HGB Conc 29.8 g/dl (32-36); Mean Corpuscular Hemoglobin 24.1 pg (26-34); Mean Corpuscular Volume 80.7 fl (80-100); Mean Platelet Volume 9.2 fl (7.4-10.4); Monocytes Absolute Auto 0.4 K/mm3 (0.1-0.6); Neutrophils Percent Auto 72.4 % (45.5-73.1); Platelet Count Result 363 k/mm3 (150-375); Red Blood Count 3.99 M/mm3 (4.2-5.4); Red Cell Distribution Width 17.2 % (11.5-14.5)
--- NOTE | 2021-05-31 09:19 | ED.SKABFB ---
HPI - Skin/Abscess/Foreign Bdy General Chief complaint: Skin/Abscess/Foreign Body Stated complaint: cellulitis Time Seen by Provider: 05/31/21 08:23 History of Present Illness HPI narrative: Patient is a 36-year-old female who presents ER with left buttock abscess/cellulitis. Was seen 3 days ago and offered admission after an ultrasound showed phlegmon and patient had cellulitis. She was started on clindamycin. She has been taking it daily. She has been applying topical antibiotic. She has noticed some yellow/bloody drainage. No fevers or chills or sweats. She feels as if the erythema has improved. She is still having pain despite taking ibuprofen. Related Data Home Medications Medication Instructions Recorded Confirmed Claritin-D 12 Hour 1 tablet PO Q12H PRN 12/09/19 04/13/21 fluticasone propionate [Flonase 1 spray INTRANASAL DAILY PRN 12/09/19 04/13/21 Allergy Relief] cholecalciferol (vitamin D3) 50 50 mcg PO .twice weekly cap 04/13/21 04/13/21 mcg (2,000 unit) capsule escitalopram oxalate 10 mg tablet 15 mg PO DAILY tablet 04/13/21 04/13/21 ferrous sulfate 325 mg (65 mg 325 mg PO DAILY 04/13/21 04/13/21 iron) tablet norgestimate-ethinyl estradiol tablet 05/28/21 [Sprintec (28)] sulfamethoxazole-trimethoprim tablet 05/28/21 Allergies Allergy/AdvReac Type Severity Reaction Status Date / Time almond Allergy Severe Swelling Verified 05/28/21 12:36 Review of Systems Review of Systems: All systems reviewed & are unremarkable except as noted in HPI and below Constitutional: Constitutional: Denies chills, Denies fever(s) and Denies weakness Respiratory: Respiratory: Denies cough and Denies dyspnea Gastrointestinal: Gastrointestinal: Denies abdominal pain, Denies nausea and Denies vomiting Integumentary/Breasts: Skin/Breast: Denies erythema Comments: Abscess/induration left buttock PMFSH Past Medical History Medical History False labor Hypertension IBS (irritable bowel syndrome) Incompetence of cervix Morbid obesity COSME on CPAP Osteoarthritis of left knee Surgical History Surgical History History of meniscectomy of left knee History of tonsillectomy Family History Family History Mother Diabetes mellitus Grandparent Hypertension Malignant neoplasm of prostate Mother Diabetes mellitus Fibromyalgia Thrombocytopathy Grandparent Skin cancer Other Carcinoma of colon Social History Social History (Updated 04/13/21 @ 09:05 by Ju Murguia [facility]) Smoking status: Never smoker Second hand tobacco smoke exposure: No Smoking end date: 08/14/10 Alcohol intake: never Substance use: never Substance use type: does not use Gender identity (if verbalized by the patient): Female Spiritual care concerns: No Exam Narrative: GENERAL: Well-appearing, well-nourished, and in no acute distress. HEAD: Normocephalic, atraumatic. EXTREMITIES: Normal range of motion. No edema. SKIN: Warm, dry. Left buttock with some sloughing of skin over a indurated region approximately 5 cm x 6 cm. Fluctuance noted in the middle. No overt cellulitis. NEURO: Alert and oriented x3. PSYCH: Normal mood and affect. Course Course Emergency Course: Patient tolerated incision and drainage. Leukocytosis improving. Continue clindamycin at home. Pull packing in 2 days. Vital Signs Vital signs: Vital Signs Temperature 98.5 F 05/31/21 08:28 Pulse Rate 87 05/31/21 08:28 Respiratory Rate 16 05/31/21 08:28 Blood Pressure 168/89 H 05/31/21 08:28 Pulse Oximetry 98 05/31/21 08:28 Temperature 98.5 F 05/31/21 08:28 Pulse Rate 87 05/31/21 08:28 Respiratory Rate 16 05/31/21 08:28 Blood Pressure 168/89 H 05/31/21 08:28 Pulse Oximetry 98 05/31/21 08:28 Procedures Abscess I
[2021-05-31 09:22] LABS: Anion Gap 6 mmol/L (8-16); Blood Urea Nitrogen 9 mg/dL (7-17); Calcium 8.4 mg/dL (8.4-10.2); Carbon Dioxide 26 mmol/L (22-30); Chloride 106 mmol/L (98-107); Estimated CRCL calculation 142 ml/min; Estimated Glomerular Filt Rate > 60; Glucose 144 mg/dL (65-110); Potassium 3.9 mmol/L (3.4-5.0); Sodium 138 mmol/L (137-145)
[2021-05-31 09:40] LABS: Hypochromasia 1+ (NORMAL); Platelet Estimate Adequate (Adequate)
== END 2021-05-31 10:25 | disposition home or self-care (01) ==
PROVIDERS: Emergency Provider Emergency Medicine; PCP Family Medicine
DX: L02.31 Cutaneous abscess of buttock (principal); I10 Essential (primary) hypertension; K58.9 Irritable bowel syndrome, unspecified; G47.33 Obstructive sleep apnea (adult) (pediatric); M17.12 Unilateral primary osteoarthritis, left knee; E66.01 Morbid (severe) obesity due to excess calories; Z68.44 Body mass index [BMI] 60.0-69.9, adult
CPT/HCPCS: 10061; 36415; 80048; 85025; 99283

== ENCOUNTER 2021-12-07 16:30 | Outpatient (RCR) | payer OTHER, SELFPAY ==
--- NOTE | 2021-10-21 16:26 | PTOPEVAL ---
PHYSICAL THERAPY EVALUATION and PLAN OF CARE Thank you for referring Lesvia Duckworth to [facility] The patient is scheduled to be seen for therapy? 1x/week for 4-6 weeks for treatment of pelvic floor pain and weakness with cystocele and rectocele. Please review, sign, date and return this plan of care SEGUNDO. I agree with and certify that the following plan of care is medically necessary. Referring Physician Date Attending Provider: Mary Garibay MD Evaluation Outpatient Past Medical History Neurological History Hx Migraine Yes Cardiovascular History Hx Hypertension Yes: HPTN PRIOR TO Respiratory History Hx Sleep Apnea Yes: USES CPAP Gastrointestinal History Hx Gastroesophageal Reflux Disease Yes Genitourinary History Hx Genitourinary Disorders No Significant History Musculoskeletal History Hx Orthopedic Surgery Yes: LT KNEE MENISCUS REPAIR Hematological History Hx Hematological Disorders No Significant History Endocrine History Hx Endocrine Disorders No Significant History HEENT History Hx Tonsillectomy Yes Integumentary History Hx Skin Disorders No Significant History Reproductive History Hx Other Reproductive Disorders Yes: INCOMPETENT CERVIX, PREVIOUS CERCLAGE Psychosocial History Hx Anxiety Yes Pain History Has Past Pain Affected Your Daily Life Yes: KNEE PAIN Anesthesia History Hx Anesthesia Reactions No Significant History Diagnosis cystocele, rectocele, pelvic pain Subjective Information Lesvia is here today because Query Text:As Reported By Patient/ she has been experiencing some Family pain in her pelvic floor region. She reports feeling something between her legs when sitting on the toilet. She does have pain with this sensation and it will depend on how she is sitting or standing or how much activity she has done. She can lay down and it will help to decrease the pain. States that she can leak urine if she does not get to the bathroom in time. She is experiencing more stress incontinence also (is also on a water pill). She does experience episodes to go to the bathroom and then shortly after have to go again. She does experience increas
--- NOTE | 2021-11-16 17:43 | PCPTNOTE ---
Patient did not show up for scheduled appointment this date.
--- NOTE | 2021-12-07 17:10 | PTOPEVAL ---
PHYSICAL THERAPY DISCHARGE NOTE Thank you for referring Lesvia Duckworth to [facility].? Please review, sign, date and return this plan of care SEGUNDO. I agree with and certify that the following plan of care is medically necessary. Referring Physician Date Attending Provider: Mary Garibay MD Diagnosis cystocele, rectocele, pelvic pain Subjective Information States that overall pain is Query Text:As Reported By Patient/ much improved. Worst pain is Family no greater than a 6/10 compared to a 9/10 and her overall episodes of pain are decreased. Only leaks a little bit between episodes of urination but she is aware of her exercises and habitual changes to improve the urgency of her urination. Perineum Reported Pain Level 1 Pain Description Aching Pain Frequency Chronic,Continuous, Intermittent Lowest Pain Intensity 1 Greatest Pain Intensity 6 Pain Aggravating Factors Walking,Weight Bearing/ Standing Pain Behaviors None Hip Strength Right Hip Flexion Strength 5 Normal Hip Extension Strength 4 Good Hip Abduction Strength 5 Normal Left Hip Flexion Strength 5 Normal Hip Extension Strength 4- Good - Hip Abduction Strength 4 Good Knee Strength Right Knee Flexion Strength 5 Normal Knee Extension Strength 5 Normal Left Knee Flexion Strength 5 Normal Knee Extension Strength 5 Normal Levator Ani strength: able to perform at 4 strength power for 10seconds for 10 reps. --reviewed HEP; reviewed urge incontinence strategies; reviewed general cardio recommendations and implications for exercise/impact exercise with prolapse PT Clinical Summary Lesvia has participated in 4 visits of physical therapy for pelvic floor strength and training. She demonstrates significant improvement in levator ani strength and neuromuscular activation. She also presents with significantly decreased pelvic pain and reports decreased feeling of something between her legs. Lesvia also demonstrates improved bilateral LE/hip s
== END 2021-12-08 09:20 | disposition home or self-care (01) ==
LOC: ANHPT 16:30
PROVIDERS: PCP Family Medicine; Visit Provider Obstetrics & Gynecology Gynecology
DX: N81.2 Incomplete uterovaginal prolapse (principal); N81.6 Rectocele
CPT/HCPCS: 97110; 97112; 97140; 97162; 97530

== ENCOUNTER 2022-06-24 07:32 | Outpatient (CLI) | payer OTHER, SELFPAY ==
--- NOTE | 2022-07-25 13:32 | WPDSLEEPSTUD ---
Sleep Study Date of Study: 06/24/22 Ordering Provider: NEW Worthington Interpreting Physician: Doris Villeda DO Sleep Study Type: Split Polysomnogram Height: 1.57 m Weight: 154.221 kg Body Mass Index: 62.1 Neck Circumference (inches): 17 [place]: 17 Reason for Sleep Study Previously diagnosed with COSME in 2010 and has been on CPAP since. Sleep History The patient is a 37-year-old female with anxiety, depression hypertension irritable bowel syndrome, left knee osteoarthritis morbid obesity and COSME on CPAP that had a sleep study ordered by her primary care for adjustment of CPAP settings. 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 The patient denies awakening from sleep short of breath. She denies awakening at night with heartburn, belching or cough. She constantly snores loud enough that others complain. She occasionally has trouble sleeping when she has a cold. She rarely wakes up gasping for air throughout the night. She occasionally has breathing problems at night observed by herself or others. She denies sweating excessively at night. She denies having heart palpitations or irregular heartbeats during the night. She frequently falls asleep during the day but never while driving. He denies sleep paralysis, cataplexy and hypnagogic / hypnopompic hallucinations. She rarely feels afraid of going to sleep. She rarely has nightmares and rarely remembers her dreams. She denies having thoughts racing through her mind. She frequently feels sad, depressed and anxious. She rarely has muscular tension. She denies noticing parts of her body jerk. She denies kicking during the night. She rarely has crawling and aching feelings in her legs and rarely has leg pain during the night. She denies grinding her teeth during sleep and denies awakening with morning jaw pain. She is frequently bothered by pain during the day but rarely awakened by pain during the night. She occasionally wakes up feeling stiff in the morning. She occasionally wakes up with sore achy muscles. She occasionally wakes up with pain in the neck, spine or other joints. She goes to bed at 9:00 p.m. on both weekdays and weekends. It takes her 45 minutes to fall asleep. She wakes up 1-2 times throughout the night. When she awakens, she will clean or mopped the floors. It will take her hours to fall asleep. She wakes up at 6:00 a.m. both weekdays and weekends. She will typically gets 5 hours of sleep per night. She will stay in bed for 5 minutes after waking up in the morning. She currently lives with her and 2 children. She does not consume any caffeinated beverages within 2 hours bedtime. He does not engage in physical exercise before bedtime. She will watch television before falling asleep. She will take naps in the afternoon or the evening but they are not refreshing. The patient consumes caffeinated beverages when needed. She quit smoking 4 years ago. She denies alcohol or recreational drug use. [facility] Past Medical History Medical History Adult body mass index 40 and over False labor Hypertension IBS (irritable bowel syndrome) Incompetence of cervix Morbid obesity Obstructive sleep apnea (adult) (pediatric) COSME on CPAP Osteoarthritis of left knee Surgical History Surgical History History of meniscectomy of left knee History of tonsillectomy Family History Family History Mother Diabetes mellitus Grandparent Hypertension Malignant neoplasm of prostate Mother Diabetes mellitus Fibromyalgia Thrombocytopathy Grandparent Skin cancer Other Carcinoma of colon Social History Social History Smoking status: Never smoker Second hand tobacco smoke exposure: No Smoking end date: 08/14/10 A
[2022-07-25 14:18] VITALS: BMI 62.1
== END 2022-06-25 05:54 | disposition home or self-care (01) ==
PROVIDERS: PCP Family Medicine; Visit Provider Physician Assistant Medical
DX: G47.33 Obstructive sleep apnea (adult) (pediatric) (principal)
CPT/HCPCS: 95811

== ENCOUNTER 2022-10-06 10:17 | Emergency (ER) | payer OTHER, SELFPAY ==
--- NOTE | ~2022-10-06 | XR_ITS ---
Left ankle Technique: AP, oblique, and lateral views were obtained. Clinical History: Pain Findings: No acute fracture or dislocation is seen. Osseous alignment is anatomic. Ankle mortise and other visualized joint spaces are preserved. Soft tissues are otherwise unremarkable. Impression: Unremarkable left ankle. Reviewed, dictated and finalized at location . M[employer] MECH[employer]IC Impression: Unremarkable left ankle.
[2022-10-06 10:21] VITALS: BP 178/108; PULSE 78; RESP 15; TEMP 36.4; O2SAT 100
--- NOTE | 2022-10-06 10:35 | ED.LOWEXIN ---
HPI - Extremity Injury (Lower) General Chief Complaint: Extremity Injury, Lower Stated Complaint: ankle pain Time Seen by Provider: 10/06/22 10:27 Source: patient Mode of arrival: ambulatory Limitations: no limitations History of Present Illness HPI Narrative: This is a 37 year old female that presents to the ER for left ankle pain ongoing over the last couple of weeks. Reports with weight bearing and movement. Relieved with rest. No recent injuries or trauma. She has been taking anti-inflammatories with little relief. Denies fever, erythema, edema, decreased ROM or numbness. Related Data Home Medications Medication Instructions Recorded Confirmed loratadine 5 mg-pseudoephedrine ER 1 tablet PO Q12H PRN Allergic 12/09/19 06/08/22 120 mg tablet,extended Symptoms release,12hr (Claritin-D 12 Hour) escitalopram oxalate 10 mg tablet 15 mg PO DAILY 04/13/21 06/08/22 (Lexapro) ferrous sulfate 325 mg (65 mg 325 mg PO DAILY 04/13/21 06/08/22 iron) tablet Allergies Allergy/AdvReac Type Severity Reaction Status Date / Time almond Allergy Severe Swelling Verified 06/08/22 15:09 Review of Systems Review of Systems: CONSTITUTIONAL: Denies fever SKIN: Denies rash MUSCULOSKELETAL: Reports joint pain, and myalgia. NEUROLOGIC: Denies numbness, or weakness. All systems reviewed & are unremarkable except as noted in HPI and below PMFSH Past Medical History Medical History Adult body mass index 40 and over False labor Hypertension IBS (irritable bowel syndrome) Incompetence of cervix Morbid obesity Obstructive sleep apnea (adult) (pediatric) COSME on CPAP Osteoarthritis of left knee Surgical History Surgical History History of meniscectomy of left knee History of tonsillectomy Family History Family History Mother Diabetes mellitus Grandparent Hypertension Malignant neoplasm of prostate Mother Diabetes mellitus Fibromyalgia Thrombocytopathy Grandparent Skin cancer Other Carcinoma of colon Social History Social History Smoking status: Never smoker Second hand tobacco smoke exposure: No Smoking end date: 08/14/10 Alcohol intake: never Substance use: never Substance use type: does not use Lack of Transportation: No Lack of Food: Never True Current Housing: I Have Housing Concerned About Future Housing: No Difficulty Paying Gas/Electric Bills: No Difficulty Paying for Meds: No Currently Unemployed: YES Education: High School Diploma/GED Difficulty w/ Childcare or Family Care: YES Living arrangements: with family Occupation/Education: occupation Gender identity (if verbalized by the patient): Female Spiritual care concerns: No Agree to blood products: Yes Exam Narrative: GENERAL: Well-appearing, well-nourished, and in no acute distress. HEAD: Normocephalic, atraumatic. EYES: EOMI. EXTREMITIES: Normal range of motion. No edema, erythema or warmth. Normal DP pulse. Normal sensation SKIN: Warm, dry, no rash. NEURO: No focal deficits. Alert and oriented x3. PSYCH: Normal mood and affect Course Course Emergency Course: Patient updated on workup and agrees with plan of care Vital Signs Vital signs: Vital Signs Temperature 97.6 F 10/06/22 10:21 Pulse Rate 78 10/06/22 10:21 Respiratory Rate 15 10/06/22 10:21 Blood Pressure 178/108 H 10/06/22 10:21 Pulse Oximetry 100 10/06/22 10:21 Oxygen Delivery Room Air 10/06/22 10:21 Temperature 97.6 F 10/06/22 10:21 Pulse Rate 78 10/06/22 10:21 Respiratory Rate 15 10/06/22 10:21 Blood Pressure 178/108 H 10/06/22 10:21 Pulse Oximetry 100 10/06/22 10:21 Oxygen Delivery Room Air 10/06/22 10:21 MDM - Extremity Injury (Lower) M
[2022-10-06] MEDS: ACETAMINOPHEN 500 MG TABLET 1000 MG PO (11:53)
[2022-10-06] MEDS: lisinopriL 20 MG TABLET PO (11:54)
--- NOTE | 2022-10-06 13:09 | PC.NURSE ---
laura wrap applied to L ankle at this time. Crutches provided and crutch training instructed to patient. Patient verbalizes understanding and denies any questions
[2022-10-06 13:14] VITALS: RESP 14
== END 2022-10-06 13:16 | disposition home or self-care (01) ==
PROVIDERS: Emergency Provider Physician Assistant; PCP Family Medicine
DX: M25.572 Pain in left ankle and joints of left foot (principal); I10 Essential (primary) hypertension; K58.9 Irritable bowel syndrome, unspecified; G47.33 Obstructive sleep apnea (adult) (pediatric); M17.12 Unilateral primary osteoarthritis, left knee; E66.01 Morbid (severe) obesity due to excess calories; Z68.44 Body mass index [BMI] 60.0-69.9, adult; Z87.891 Personal history of nicotine dependence
CPT/HCPCS: 73610; 99283; A9270

== ENCOUNTER 2023-01-25 11:45 | Emergency (ER) | payer OTHER, SELFPAY ==
--- NOTE | ~2023-01-25 | US_ITS ---
EXAMINATION: US pelvic complete DATE: 01/25/2023 21:34 INDICATION: Abnormal CT. Right adnexal mass. Comparison:CT dated 01/25/2023 TECHNIQUE: Multiple transabdominal sonographic images of the pelvis performed. FINDINGS: The uterus measures 10.3 x 5.3 x 6 cm. The endometrial complex measures 2.5 cm. Endometrium is diffusely thickened and heterogeneous. The right ovary measures 5.6 x 4.6 x 6.4 cm. and the left ovary is not visualized. There is a complic ated septated 4.9 cm right ovarian cyst. There is no free fluid in the pelvis. There are no abnormal masses seen on either side. IMPRESSION: 1. Complicated right ovarian cyst containing internal septation measuring 4.9 cm. 2: Endometrial thickening measuring 2.5 cm. Reviewed, dictated and finalized at location L. IMPRESSION: 1. Complicated right ovarian cyst containing internal septation measuring 4.9 c m. 2: Endometrial thickening measuring 2.5 cm.
--- NOTE | ~2023-01-25 | CT_ITS ---
EXAMINATION: CT abdomen pelvis w con DATE: 01/25/2023 INDICATION: Right lower quadrant abdominal pain. TECHNIQUE: Computed tomography (CT) of the abdomen and pelvis was performed with 100 mL Omnipaque 350 intravenous contrast. Automated exposure control and iterative reconstruction technique were employe d. The dose-length product was 1756 mGy-cm. COMPARISON: Pelvis ultrasound 12/16/2020 FINDINGS: The visualized portions of the lung bases are clear without pneumonia or pleural effusion. The heart size is normal. No pericardial effusion. There is a 7 mm cyst in the liver. The gallbladder is distended. The spleen, pancreas, and right adrenal gland are normal. There is a 2.4 cm mass in le ft adrenal gland. The kidneys are normal. There is a 5.2 cm mass in right adnexa. There are no dilate d loops of bowel. The appendix is normal. There is an umbilical hernia containing fat. There are no p athologically enlarged lymph nodes. There is no free intraperitoneal fluid. There is mild thoracic an d lumbar spondylosis. IMPRESSION: 1. 5.2 cm mass in right adnexa, which may be a hemorrhagic cyst. Pelvis ultrasound is recommended. 2. 2.4 cm left adrenal mass. In the absence of known malignancy, this finding is most likely an adeno ma. 3. Umbilical hernia containing fat. 4. Gallbladder distention, which may be secondary to fasting. Correlate with physical exam to exclude acute cholecystitis. Reviewed, dictated and finalized at location A. IMPRESSION: 1. 5.2 cm mass in right adnexa, which may be a hemorrhagic cyst. Pelvis ultraso und is recommended. 2. 2.4 cm left adrenal mass. In the absence of known malignancy, this finding i s most likely an adenoma. 3. Umbilical hernia containing fat. 4. Gallbladder distention, which may be secondary to fasting. Correlate with ph ysical exam to exclude acute cholecystitis.
[2023-01-25] MEDS: HYDROcodone/acetaminophen (*CRX) 5-325 MG TABLET 1 TAB PO (21:36)
[2023-01-25 21:37] VITALS: BP 187/114; PULSE 64; RESP 18; TEMP 36.4; O2SAT 100
[2023-01-26 11:05] LABS: Appearance Urine Clear (Clear); Bilirubin Urine Negative (Negative); Blood Urine Negative (Negative); Color Urine Yellow (Yellow); Glucose Urine UA Negative (Negative); Ketones Urine Negative (Negative); Leukocyte Esterase Ur Trace LEU/UL (Negative); Nitrate Urine Negative (Negative); Protein Urine Negative (Negative); Specific Grav Ur 1.014 (1.001-1.035); Urobilinogen Urine 0.2 mg/dL (<2.0)
[2023-01-26 11:06] LABS: Add Urine Microscopic? YES; Bacteria Urine None seen /hpf; Hyaline Casts Urine 0-2 /lpf; RBC Urine 0-2 /hpf (0-2); Squamous Epithelial Cell Urine Occasional /hpf (Few); WBC Urine 0-5 /hpf
[2023-01-26 11:07] LABS: Hematocrit 34.6 % (37.0-47.0); Hemoglobin 10.3 g/dL (12.0-15.0); Immature Granulocyte Percent A 0.3 % (0-0.5); Lymphocytes Percent Auto 23.1 % (18.3-44.2); Mean Corpuscular HGB Conc 29.8 g/dl (32-36); Mean Corpuscular Hemoglobin 23.6 pg (26-34); Mean Corpuscular Volume 79.4 fl (80-100); Mean Platelet Volume 9.5 fl (7.4-10.4); Monocytes Percent Auto 4.8 % (2.6-8.5); Neutrophils Percent Auto 68.5 % (45.5-73.1); Platelet Count Result 338 k/mm3 (150-375); Red Blood Count 4.36 M/mm3 (4.2-5.4); Red Cell Distribution Width 16.7 % (11.5-14.5); White Blood Count 9.5 K/mm3 (4.5-10.0)
[2023-01-26 11:08] LABS: Basophils Percent Auto 0.3 % (0.2-1.2); Eosinophils Absolute Auto 0.3 K/mm3 (0-0.3); Immature Granulocyte Absolute 0.03 K/mm3 (0.00-0.031); Lymphocytes Absolute Auto 2.19 K/mm3 (0.9-3.2); Monocytes Absolute Auto 0.5 K/mm3 (0.1-0.6); Neutrophils Absolute Auto 6.5 K/mm3 (1.3-6.7)
[2023-01-26 11:09] LABS: Anisocytosis 2+ (NORMAL); Hypochromasia 1+ (NORMAL); Platelet Estimate Adequate (Adequate); Schistocytes None Seen (NORMAL)
[2023-01-26 11:10] LABS: Alanine Aminotransferase 21 U/L (6-35); Anion Gap 8 mmol/L (8-16); Aspartate Amino Transferase 24 U/L (14-36); Bilirubin,Total 0.4 mg/dL (0.2-1.3); Blood Urea Nitrogen 12 mg/dL (7-17); Calcium 8.3 mg/dL (8.4-10.2); Carbon Dioxide 28 mmol/L (22-30); Chloride 101 mmol/L (98-107); Estimated Glomerular Filt Rate > 60; Glucose 87 mg/dL (65-110); Potassium 3.8 mmol/L (3.4-5.0); Sodium 137 mmol/L (137-145)
[2023-01-26 11:11] LABS: Albumin Level 3.9 g/dL (3.5-5.1); Alkaline Phosphatase 76 U/L (38-126); Lipase 29 U/L (23-300); Total Protein 7.2 g/dL (6.3-8.2)
== END 2023-01-25 21:38 | disposition home or self-care (01) ==
PROVIDERS: Emergency Provider Emergency Medicine; PCP Family Medicine
DX: N83.201 Unspecified ovarian cyst, right side (principal); D35.02 Benign neoplasm of left adrenal gland; I10 Essential (primary) hypertension; E11.9 Type 2 diabetes mellitus without complications
CPT/HCPCS: 36415; 74177; 76856; 80053; 81001; 83690; 85025; 96361; 96374; 96375; 99284; A9270; J1170; J2405; J7030; Q9967

== ENCOUNTER 2023-05-14 01:47 | Emergency (ER) | payer OTHER, SELFPAY ==
[2023-05-14] VITALS (20 sets, daily range): BP systolic 138–160; BP diastolic 83–99; PULSE 70–88; RESP 17–22; TEMP 35.9; O2SAT 97–100
--- NOTE | ~2023-05-14 | CT_ITS ---
EXAMINATION: CT abdomen pelvis w con INDICATION: Left lower quadrant abdominal pain, buttock abscesses TECHNIQUE: Computed tomographic images of the abdomen and pelvis were obtained after the administrati on of 100 cc of Omnipaque 350 intravenous contrast. The dose-length product (DLP) was 1678.62 mGy-cm. Automated exposure control and iterative reconstruction technique were employed. COMPARISON: 01/25/2023 FINDINGS: The lung bases are clear. The heart size is normal. There is a 7 mm cyst of the left hepati c lobe. The spleen, pancreas, gallbladder, and right adrenal gland are normal. There is a stable 2.4 cm mass of the left adrenal gland. The kidneys are unremarkable. There is mild cellulitis of the left buttock. No discrete abscess is identified. There is mild left inguinal lymphadenopathy, likely reac tive. No free intraperitoneal gas or evidence of bowel obstruction. There is an umbilical hernia cont aining fat. There is mild lumbar spondylosis. IMPRESSION: 1. Mild cellulitis of the left buttock without discrete abscess identified. Left inguinal lymphadenop athy is likely reactive. 2. Stable 2.4 cm left adrenal mass, likely an adenoma in the absence of known malignancy. Reviewed, dictated and finalized at location F. IMPRESSION: 1. Mild cellulitis of the left buttock without discrete abscess identified. Lef t inguinal lymphadenopathy is likely reactive. 2. Stable 2.4 cm left adrenal mass, likely an adenoma in the absence of known m alignancy.
--- NOTE | 2023-05-14 02:53 | ED.SKABFB ---
HPI - Skin/Abscess/Foreign Bdy General Chief complaint: Skin/Abscess/Foreign Body Stated complaint: spider bite? Time Seen by Provider: 05/14/23 02:27 History of Present Illness HPI narrative: This is a 38-year-old female, with past history of hypertension and diabetes, who presents to the emergency department complaining of a painful swelling of the left buttock and left lower quadrant abdominal pain for the past 5 days. The patient states approximately 5 days ago, she was in her usual state of health when she felt a sharp pain at the left buttock. She was evaluated by primary care doctor who prescribed antibiotics. However in the past 2 days, she has developed worsening left lower quadrant abdominal pain, radiating to the groin. She rates the pain 7/10, described as dull and worse with direct pressure. She has no other complaints at this time. Related Data Home Medications Medication Instructions Recorded Confirmed drospirenone (contraceptive) 4 mg 1 tablet PO DAILY 02/03/23 02/03/23 (28) tablet (Slynd) medroxyprogesterone 10 mg tablet 20 mg PO TID 03/08/23 Allergies Allergy/AdvReac Type Severity Reaction Status Date / Time almond Allergy Severe Swelling Verified 05/14/23 02:05 Review of Systems Review of Systems: CONSTITUTIONAL: Denies fever, chills, or sweats. CARDIOVASCULAR: Denies chest pain, palpitations, or edema. RESPIRATORY: Denies cough or dyspnea. GASTROINTESTINAL: Left lower quadrant abdominal pain denies nausea, vomiting, or diarrhea. GENITOURINARY: Denies dysuria or hematuria. SKIN: Painful redness and swelling of the left buttock denies itching. MUSCULOSKELETAL: Denies back pain, joint pain, or myalgia. NEUROLOGIC: Denies headache, numbness, dizziness, or weakness. PSYCHIATRIC: Denies anxiety or depression. [facility] Past Medical History Medical History Dizziness GDM, class A1 Hypertension IBS (irritable bowel syndrome) Irregular bleeding Kidney cysts Morbid obesity Nausea & vomiting Obstructive sleep apnea (adult) (pediatric) COSME on CPAP Osteoarthritis of left knee Pelvic prolapse Pre-eclampsia superimposed on chronic hypertension Thickened endometrium Vaginal delivery x2 Surgical History Surgical History History of cervical cerclage x2 History of meniscectomy of left knee History of tonsillectomy Family History Family History Mother Diabetes mellitus Depression Hypertension Grandparent Hypertension Malignant neoplasm of prostate Scoliosis Mother Diabetes mellitus Fibromyalgia Thrombocytopathy Grandparent Skin cancer Asthma Depression Other Asthma cousin Social History Social History Smoking packs per day: 0.25 Smoking cigarettes per day: 5.0 Years smoked: 5 Smoking pack-years: 1.25 Smoking status: Former smoker Tobacco type: cigarettes Second hand tobacco smoke exposure: No Alcohol intake: never Substance use: current Substance use type: marijuana Other substance usage details: edibles for pain Lack of Transportation: No Lack of Food: Sometimes True Current Housing: I Have Housing Concerned About Future Housing: No Difficulty Paying Gas/Electric Bills: No Difficulty Paying for Meds: No Currently Unemployed: No Education: High School Diploma/GED Difficulty w/ Childcare or Family Care: YES Living arrangements: with family Occupation/Education: occupation Gender identity (if verbalized by the patient): Female Spiritual care concerns: No Agree to blood products: Yes Exam Narrative: GENERAL: Well-developed, well-nourished, and in no acute distress. HEAD: Normocephalic, atraumatic. EYES: PERRLA and EOMI. ENT: Nares clear, no rhinorrhea or epistaxis. Mucous membranes m
[2023-05-14] MEDS: MORPHINE SULFATE (*CRX) 4 MG/ML INJ IV PUSH (03:06)
[2023-05-14 03:17] LABS: Basophils Absolute Auto 0.1 K/mm3 (0.0-0.1); Basophils Percent Auto 0.5 % (0.2-1.2); Eosinophils Absolute Auto 0.4 K/mm3 (0-0.3); Eosinophils Percent Auto 4.2 % (0-4.4); Hematocrit 28.8 % (37.0-47.0); Hemoglobin 8.1 g/dL (12.0-15.0); Immature Granulocyte Absolute 0.05 K/mm3 (0.00-0.031); Immature Granulocyte Percent A 0.5 % (0-0.5); Lymphocytes Absolute Auto 1.94 K/mm3 (0.9-3.2); Mean Corpuscular HGB Conc 28.1 g/dl (32-36); Mean Corpuscular Hemoglobin 21.1 pg (26-34); Mean Platelet Volume 9.3 fl (7.4-10.4); Monocytes Absolute Auto 0.7 K/mm3 (0.1-0.6); Monocytes Percent Auto 6.6 % (2.6-8.5); Neutrophils Absolute Auto 7.1 K/mm3 (1.3-6.7); Neutrophils Percent Auto 69.2 % (45.5-73.1); Platelet Count Result 383 k/mm3 (150-375); Red Blood Count 3.84 M/mm3 (4.2-5.4); Red Cell Distribution Width 18.2 % (11.5-14.5); White Blood Count 10.2 K/mm3 (4.5-10.0)
[2023-05-14 03:28] LABS: Alanine Aminotransferase 23 U/L (6-35); Alkaline Phosphatase 76 U/L (38-126); Anion Gap 7 mmol/L (8-16); Aspartate Amino Transferase 27 U/L (14-36); Bilirubin,Total 0.4 mg/dL (0.2-1.3); Blood Urea Nitrogen 10 mg/dL (7-17); Calcium 8.5 mg/dL (8.4-10.2); Carbon Dioxide 25 mmol/L (22-30); Chloride 107 mmol/L (98-107); Estimated CRCL calculation 140 ml/min; Estimated Glomerular Filt Rate > 60; Glucose 112 mg/dL (65-110); Potassium 3.9 mmol/L (3.4-5.0); Sodium 139 mmol/L (137-145)
[2023-05-14 03:29] LABS: Lactic Acid Reflex 0.9 mmol/L (0.7-2.0)
[2023-05-14 03:44] LABS: Platelet Estimate Adequate (Adequate)
[2023-05-14 03:45] LABS: Anisocytosis 1+ (NORMAL); Tear Drop Cells 1+ (NORMAL)
[2023-05-14 03:46] LABS: Hypochromasia 1+ (NORMAL); Schistocytes Rare (NORMAL)
== END 2023-05-14 07:07 | disposition home or self-care (01) ==
PROVIDERS: Emergency Provider Preventive Medicine Aerospace Medicine; PCP Family Medicine
DX: L03.317 Cellulitis of buttock (principal); I10 Essential (primary) hypertension; E11.9 Type 2 diabetes mellitus without complications; E66.01 Morbid (severe) obesity due to excess calories; Z68.44 Body mass index [BMI] 60.0-69.9, adult; G47.33 Obstructive sleep apnea (adult) (pediatric); K58.9 Irritable bowel syndrome, unspecified; M17.12 Unilateral primary osteoarthritis, left knee; Z87.891 Personal history of nicotine dependence; Z79.84 Long term (current) use of oral hypoglycemic drugs
CPT/HCPCS: 36415; 74177; 80053; 81025; 83605; 85025; 96374; 99284; J2270; Q9967

== ENCOUNTER 2023-07-02 09:44 | Emergency (ER) | payer OTHER, SELFPAY ==
--- NOTE | ~2023-07-02 | XR_ITS ---
EXAMINATION: XR pelvis 1-2V DATE: 07/02/2023 10:48 INDICATION: Left hip pain. TECHNIQUE: An anteroposterior view of the pelvis was obtained. COMPARISON: CT abdomen and pelvis 05/14/2023 FINDINGS: Bone alignment is normal. No fracture. There is mild left hip osteoarthritis characterized by tiny osteophytes. No joint space narrowing. IMPRESSION: 1. Mild left hip osteoarthritis. Reviewed, dictated and finalized at location A. EE [employer]AST[employer] HELPER
--- NOTE | ~2023-07-02 | XR_ITS ---
EXAMINATION: XR femur LT min 2V DATE: 07/02/2023 10:48 INDICATION: Left thigh pain. TECHNIQUE: 2 views of left femur on 4 radiographs were obtained. COMPARISON: None. FINDINGS: Bone alignment is normal. No fracture. There is mild left hip and knee osteoarthritis. No k nee joint effusion. IMPRESSION: 1. Mild polyarticular osteoarthritis. Reviewed, dictated and finalized at location A. TY NET MAKER
--- NOTE | ~2023-07-02 | US_ITS ---
EXAMINATION: US venous doppler [facility] DATE: 07/02/2023 11:46 INDICATION: Left lower limb pain and swelling. TECHNIQUE: Grayscale ultrasound images without and with compression and Doppler ultrasound images of the left lower extremity veins were obtained. COMPARISON: None. FINDINGS: The visualized portions of left common femoral vein, profunda (deep) femoral vein, femoral vein, popl iteal vein, peroneal veins, posterior tibial veins, and greater saphenous vein outflow are patent. IMPRESSION: 1. No deep venous thrombosis. Reviewed, dictated and finalized at location A. T CUTTER
[2023-07-02 09:45] VITALS: BP 156/85; PULSE 75; RESP 20; TEMP 36.4; O2SAT 100
--- NOTE | 2023-07-02 10:08 | ED.GENADULT ---
HPI - General Adult General Chief complaint: Extremity Injury, Lower Stated complaint: left leg pain Time Seen by Provider: 07/02/23 10:06 History of Present Illness HPI narrative: Patient is a 38-year-old female who presents to the emergency department this morning complaining of left leg pain. Patient states that in the past she has had cellulitis on her left upper thigh which has resolved. Patient got hit by a metal door along her mid and left thigh approximately 3 days ago and is unsure if that is related to her pain. She states that she did not get a bruise or any jose on her leg after the door hit her. Patient states that the pain originates some more between her left hip and mid thigh and she downward. She states that she feels as though the area between her left hip and mid thigh is swollen although no swelling is appreciated. Patient has tried to take ibuprofen and Tylenol and attempted using heating pads for the pain with no relief. Patient states that the only thing that has helped her pain placing a pillow under her butt. Patient denies any chest pain, shortness of breath, nausea, vomiting, abdominal pain, dysuria, hematuria, constipation, diarrhea, melena, hematochezia, fevers or chills. Patient also denies any headaches, dizziness, lightheadedness, blurry visions, focal weakness, numbness and or tingling. There are no other modifying, alleviating, or precipitating factors at this time. Related Data Home Medications Medication Instructions Recorded Confirmed drospirenone (contraceptive) 4 mg 1 tablet PO DAILY 02/03/23 02/03/23 (28) tablet (Slynd) medroxyprogesterone 10 mg tablet 20 mg PO TID 03/08/23 Allergies Allergy/AdvReac Type Severity Reaction Status Date / Time almond Allergy Severe Swelling Verified 07/02/23 10:02 Review of Systems Review of Systems: All systems are reviewed and are negative unless stated otherwise in the HPI. [facility] Past Medical History Medical History Dizziness GDM, class A1 Hypertension IBS (irritable bowel syndrome) Irregular bleeding Kidney cysts Morbid obesity Nausea & vomiting Obstructive sleep apnea (adult) (pediatric) COSME on CPAP Osteoarthritis of left knee Pelvic prolapse Pre-eclampsia superimposed on chronic hypertension Thickened endometrium Vaginal delivery x2 Surgical History Surgical History History of cervical cerclage x2 History of meniscectomy of left knee History of tonsillectomy Family History Family History Mother Diabetes mellitus Depression Hypertension Grandparent Hypertension Malignant neoplasm of prostate Scoliosis Mother Diabetes mellitus Fibromyalgia Thrombocytopathy Grandparent Skin cancer Asthma Depression Other Asthma cousin Social History Social History Smoking packs per day: 0.25 Smoking cigarettes per day: 5.0 Years smoked: 5 Smoking pack-years: 1.25 Smoking status: Former smoker Tobacco type: cigarettes Second hand tobacco smoke exposure: No Alcohol intake: never Substance use: current Substance use type: marijuana Other substance usage details: edibles for pain Lack of Transportation: No Lack of Food: Sometimes True Current Housing: I Have Housing Concerned About Future Housing: No Difficulty Paying Gas/Electric Bills: No Difficulty Paying for Meds: No Currently Unemployed: No Education: High School Diploma/GED Difficulty w/ Childcare or Family Care: YES Living arrangements: with family Occupation/Education: occupation Gender identity (if verbalized by the patient): Female Spiritual care concerns: No Agree to blood products: Yes Exam Narrative: General: Alert, awake, afebrile, in no acute distress, obese. KEISHA
[2023-07-02] MEDS: methylPREDNISolone SOD SUCC 125 MG VIAL IM (12:48)
== END 2023-07-02 13:00 | disposition home or self-care (01) ==
PROVIDERS: Emergency Provider Emergency Medicine; PCP Family Medicine
DX: M54.30 Sciatica, unspecified side (principal); M19.90 Unspecified osteoarthritis, unspecified site; I10 Essential (primary) hypertension; Z87.891 Personal history of nicotine dependence
CPT/HCPCS: 72170; 73552; 93971; 96372; 99284; J2930

== ENCOUNTER 2024-02-28 06:32 | Emergency (ER) | payer OTHER, SELFPAY ==
[2024-02-28] VITALS (14 sets, daily range): BP systolic 143–174; BP diastolic 83–109; PULSE 62–82; RESP 11–18; TEMP 36.1; O2SAT 93–100
--- NOTE | ~2024-02-28 | CT_ITS ---
EXAMINATION: CT abdomen pelvis w con DATE: 02/28/2024 10:33 INDICATION: Right upper quadrant abdominal pain TECHNIQUE: Computed tomography (CT) of the abdomen and pelvis was performed with 100 mL Omnipaque-350 intravenous contrast. Automated exposure control and iterative reconstruction technique were employe d. The dose-length product was 1519.19 mGy-cm. COMPARISON: 05/14/2023 FINDINGS: Lung bases are clear. Heart size is normal. No pericardial or pleural effusion. Liver, gallbladder, s pleen, pancreas, right adrenal gland and bilateral kidneys are normal. 2.4 cm left adrenal mass which given interval stability is most consistent with an adenoma. No bowel obstruction. Appendix is akanksha l. Moderate-sized fat-containing umbilical hernia. Bladder, anteverted uterus and bilateral adnexa ar e unremarkable. No free intraperitoneal gas or fluid. No pathologically enlarged abdominal or pelvic lymphadenopathy. Mild lumbar and moderate lower thoracic spondylosis. IMPRESSION: 1. No acute intra-abdominal/pelvic process. Reviewed, dictated and finalized at location A.
--- NOTE | 2024-02-28 07:18 | ECG_ITS ---
Test Date: 2024-02-28 07:25:13 Measurements Intervals [place] Rate: 65 P: 40 WY: 158 QRS: 45 QRSD: 104 T: 51 QT: 410 QTc: 427 Interpretive Statements SINUS RHYTHM INCOMPLETE RIGHT BUNDLE BRANCH BLOCK DELAYED PRECORDIAL R/S TRANSITION BORDERLINE ECG No previous ECG available for comparison Electronically Signed On 02-28-2024 07:27:33 CDT by Joey Del Rosario D.O.
--- NOTE | 2024-02-28 08:06 | ED.GENADULT ---
HPI - General Adult General Chief complaint: Unspecified Stated complaint: palpitataions, fatigue, L leg and flank pain Time Seen by Provider: 02/28/24 07:32 History of Present Illness HPI narrative: This is a 39-year-old female presenting ED with chief complaint of epigastric discomfort. She describes it as a soreness or gas pains. No radiation. Patient's pain is mild in intensity and comes and goes. She has been trying to work with this for quite some time is been on Gas-X and Tums. Some nausea no vomiting. No fevers chills chest pain difficulty breathing urinary symptoms. Last bowel movement was yesterday normal. No response to food. Related Data Home Medications Medication Instructions Recorded Confirmed drospirenone (contraceptive) 4 mg 1 tablet PO DAILY 02/03/23 02/02/24 (28) tablet (Slynd) Allergies Allergy/AdvReac Type Severity Reaction Status Date / Time almond Allergy Severe Swelling Verified 02/28/24 07:00 turkey Allergy Mild Hives Uncoded 02/02/24 14:43 PMFSH Past Medical History Medical History Dizziness GDM, class A1 Hypertension IBS (irritable bowel syndrome) Iron deficiency anemia Irregular bleeding Kidney cysts Morbid obesity Nausea & vomiting Obstructive sleep apnea (adult) (pediatric) COSME on CPAP Osteoarthritis of left knee Pelvic prolapse Pre-eclampsia superimposed on chronic hypertension Thickened endometrium Vaginal delivery x2 Surgical History Surgical History History of cervical cerclage x2 History of meniscectomy of left knee History of tonsillectomy Family History Family History Mother Diabetes mellitus Depression Hypertension Grandparent Hypertension Malignant neoplasm of prostate Scoliosis Mother Diabetes mellitus Fibromyalgia Thrombocytopathy Grandparent Skin cancer Asthma Depression Other Asthma cousin Social History Social History Smoking packs per day: 0.25 Smoking cigarettes per day: 5.0 Years smoked: 5 Smoking pack-years: 1.25 Smoking status: Former smoker Tobacco type: cigarettes Second hand tobacco smoke exposure: No Alcohol intake: never Substance use: current Substance use type: marijuana Other substance usage details: edibles for pain Lack of Transportation: No Lack of Food: Sometimes True Current Housing: I Have Housing Concerned About Future Housing: No Difficulty Paying Gas/Electric Bills: No Difficulty Paying for Meds: No Currently Unemployed: No Education: High School Diploma/GED Difficulty w/ Childcare or Family Care: YES Living arrangements: with family Occupation/Education: occupation Gender identity (if verbalized by the patient): Female Spiritual care concerns: No Agree to blood products: Yes Exam Narrative: APPEARANCE: No apparent distress. Head: atraumatic. EYES: EOMI, NOSE: Atraumatic NECK: Trachea midline RESPIRATORY: No increased rate of breathing clear to auscultation CARDIOVASCULAR: RRR, ABDOMINAL: Exam is severely limited by body habitus, soft nontender no guarding or rebound MUSCULOSKELETAl: No obvious deformities NEURO: Alert. Moving 4/4 extremities SKIN:: Warm, dry. Normal color PSYCHIATRIC: Normal affect Course Vital Signs Vital signs: Vital Signs Temperature 97 F L 02/28/24 06:36 Pulse Rate 82 02/28/24 06:36 Respiratory Rate 15 02/28/24 06:36 Blood Pressure 174/109 H 02/28/24 06:36 Pulse Oximetry 100 02/28/24 06:36 Oxygen Delivery Room Air 02/28/24 06:36 Temperature 97 F L 02/28/24 06:36 Pulse Rate 64 02/28/24 09:00 Respiratory Rate 13 02/28/24 09:00 Blood Pressure 153/90 H 02/28/24 08:31 Pulse Oximetry 93 02/28/24 09:00 Oxygen Delivery Room Air 02/28/24 06:36
[2024-02-28] MEDS: MAG HYDROX/AL HYDROX/SIMETH 30 ML UDC PO (08:24)
[2024-02-28] MEDS: SODIUM CHLORIDE 0.9% IV 2,000 ML 999 ML IV CONT (08:24)
[2024-02-28] MEDS: ONDANSETRON INJ 4 MG/2 ML VIAL IV PUSH (08:25)
[2024-02-28] MEDS: FAMOTIDINE 20 MG/2 ML VIAL IV PUSH (08:25)
[2024-02-28 08:34] LABS: Basophils Percent Auto 0.5 % (0.2-1.2); Eosinophils Absolute Auto 0.4 K/mm3 (0-0.3); Eosinophils Percent Auto 4.4 % (0-4.4); Hematocrit 36.3 % (37.0-47.0); Hemoglobin 11.3 g/dL (12.0-15.0); Immature Granulocyte Absolute 0.03 K/mm3 (0.00-0.031); Immature Granulocyte Percent A 0.4 % (0-0.5); Lymphocytes Absolute Auto 1.53 K/mm3 (0.9-3.2); Lymphocytes Percent Auto 19.1 % (18.3-44.2); Mean Corpuscular HGB Conc 31.1 g/dl (32-36); Mean Corpuscular Hemoglobin 25.2 pg (26-34); Monocytes Absolute Auto 0.4 K/mm3 (0.1-0.6); Monocytes Percent Auto 5.1 % (2.6-8.5); Neutrophils Absolute Auto 5.7 K/mm3 (1.3-6.7); Neutrophils Percent Auto 70.5 % (45.5-73.1); Platelet Count Result 320 k/mm3 (150-375); Red Blood Count 4.48 M/mm3 (4.2-5.4); Red Cell Distribution Width 16.5 % (11.5-14.5)
[2024-02-28 08:51] LABS: Alanine Aminotransferase 18 U/L (6-35); Albumin Level 3.9 g/dL (3.5-5.1); Alkaline Phosphatase 66 U/L (38-126); Anion Gap 10 mmol/L (4-12); Aspartate Amino Transferase 20 U/L (14-36); Bilirubin,Total 0.4 mg/dL (0.2-1.3); Blood Urea Nitrogen 11 mg/dL (7-17); Calcium 8.5 mg/dL (8.4-10.2); Carbon Dioxide 27 mmol/L (22-30); Chloride 99 mmol/L (98-107); Estimated CRCL calculation 150 ml/min; Estimated Glomerular Filt Rate > 60; Glucose 123 mg/dL (65-110); Lipase 39 U/L (23-300); Potassium 3.7 mmol/L (3.4-5.0); Sodium 136 mmol/L (137-145)
[2024-02-28 10:16] LABS: Appearance Urine Clear (Clear); Bilirubin Urine Negative (Negative); Blood Urine Negative (Negative); Color Urine Yellow (Yellow); Glucose Urine UA Negative (Negative); Ketones Urine Negative (Negative); Leukocyte Esterase Ur Negative LEU/UL (Negative); Nitrate Urine Negative (Negative); Protein Urine Negative (Negative); Specific Grav Ur 1.008 (1.001-1.035); Urobilinogen Urine 0.2 mg/dL (<2.0)
[2024-02-28 10:19] LABS: Add Urine Microscopic? NO
== END 2024-02-28 12:16 | disposition home or self-care (01) ==
PROVIDERS: Emergency Provider Emergency Medicine; PCP Family Medicine
DX: R10.13 Epigastric pain (principal); D50.9 Iron deficiency anemia, unspecified; E66.01 Morbid (severe) obesity due to excess calories; Z68.43 Body mass index [BMI] 50.0-59.9, adult; G47.33 Obstructive sleep apnea (adult) (pediatric); K58.9 Irritable bowel syndrome, unspecified; M17.12 Unilateral primary osteoarthritis, left knee; Z87.891 Personal history of nicotine dependence; Z79.899 Other long term (current) drug therapy
CPT/HCPCS: 36415; 74177; 80053; 81003; 81025; 83690; 85025; 93005; 96361; 96374; 96375; 99284; A9270; J2405; J7030; Q9967

== ENCOUNTER 2024-05-03 08:45 | Outpatient (CLI) | payer OTHER, SELFPAY ==
--- NOTE | ~2024-05-03 | CT_ITS ---
EXAMINATION: CT abdomen w con DATE: 05/03/2024 09:34 INDICATION: Disorder of adrenal gland, unspecified. TECHNIQUE: Computed tomography (CT) of the abdomen was performed with 100 mL Omnipaque 350 intravenou s contrast. Automated exposure control and iterative reconstruction technique were employed. The dose -length product was 747.97 mGy-cm. COMPARISON: CT abdomen and pelvis 02/28/2024, 01/25/23 FINDINGS: The visualized portions of the lung bases are clear without pneumonia or pleural effusion. The heart size is normal. No pericardial effusion. The liver, gallbladder, spleen, pancreas, and righ t adrenal gland are normal. There is a 2.5 cm mass in left adrenal gland with attenuation of 27 HU. T he kidneys are normal. There is an umbilical hernia containing fat. There are no pathologically enlar ged lymph nodes. There is no free intraperitoneal fluid. There are no dilated loops of bowel. There i s mild lumbar spondylosis and moderate thoracic spondylosis. IMPRESSION: 1. 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 Reviewed, dictated and finalized at location A.
[2024-05-03 09:11] LABS: Estimated Glomerular Filt Rate > 60
== END 2024-05-03 08:46 | disposition home or self-care (01) ==
LOC: MICIMG 08:48
PROVIDERS: PCP Family Medicine; Visit Provider Student in an Organized Health Care Education/Training Program
DX: E27.9 Disorder of adrenal gland, unspecified (principal); D35.02 Benign neoplasm of left adrenal gland
CPT/HCPCS: 74160; Q9967

== ENCOUNTER 2024-05-04 07:22 | Outpatient (CLI) | payer OTHER, SELFPAY ==
--- NOTE | ~2024-05-04 | US_ITS ---
US pelvic complete w TV DATE: 05/04/2024 07:53 INDICATION: Abnormal uterine bleeding TECHNIQUE: Real-time imaging and Doppler analysis. Transabdominal and transvaginal approaches COMPARISON: 05/03/2024 CT abdomen 02/28/2024 CT abdomen pelvis 01/25/2023 pelvic ultrasound FINDINGS: The uterus measures 10.5 cm sagittal, 5.1 cm AP and 6 cm transverse dimension. The central endometrial echo complex measures approximately 4 mm AP dimension. Right ovary measures 3.8 x 2.3 x 2.7 cm with normal vascular flow. Left ovary measures 2.7 x 3.2 x 2.1 cm with normal vascular flow. No gas fluid collection is detected. IMPRESSION: Mild uterine enlargement; normal central endometrial echo complex Reviewed, dictated and finalized at Location A. Reviewed, dictated and finalized at location A.
== END 2024-05-04 07:23 | disposition home or self-care (01) ==
PROVIDERS: PCP Family Medicine; Visit Provider Student in an Organized Health Care Education/Training Program
DX: N85.2 Hypertrophy of uterus (principal); N93.9 Abnormal uterine and vaginal bleeding, unspecified
CPT/HCPCS: 76830; 76856

== ENCOUNTER 2025-04-07 00:56 | Day surgery (SDC) | payer OTHER, SELFPAY ==
--- OUTSIDE RECORDS SUMMARY | 2005-04-25 09:45 | XMS_ITS | Continuity of Care Document ---
Author Organization [facility] Address [address] [place] [address] [address] [place] [address] Phone Care Team Providers Care Traffic Coordinator Name Role Phone James Talley Unavailable Unavailable Advance Directives Directive Yes / No Effective Date File Name No Information Encounters Encounter Description Practice Location Reason(s) For Visit Diagnoses Date Provider Providers Copied on Encounter [facility], [address], [place], [place], [id number], [place] tel:[phone] [facility] No Information Apr-1 2-200 5 Doisy Edward. [address] , [address], [place], [address], [place]. tel:[phone] Family History Family Member Type Diagnosis Age At Onset No Information Payers Payer name Insurance type Covered alliance party ID Authoriza tion(s) No Information Social History Type Description Quantity Date Captured Comments Sex Female Smoking Status No Information Chief Complaint And Reason For Visit No Information Reason For Referral Reason For Referral No Information History Of Present Illness Encounter Date Complaint History Of Prese nt Illness No Information Functional Status Date Functional Assessmen t No Information Instructions Date Instruction Additional Infor mation No Information Assessments Type Assessment Date No Information Patient Care Teams Name Effective Dates (start - stop) Status Members No Information
--- OUTSIDE RECORDS SUMMARY | 2014-03-12 03:40 | XMS_ITS | Continuity of Care Document ---
Author Organization [facility] Address [address] [address] Phone Care Team Providers Care Fish Worm Grower Name Role Phone Janusz Kuhn MD Unavailable Unavailable Allergies, Adverse Reactions, Alerts Substance Reaction Status Criticality No Known Allergies Active No Inform ation Medications Medication Instructions Dosage Effective Dates (start - stop) Status Comments No Drug Therapy Prescribed Procedures Procedure Date OFFICE/OUTPATIENT VISIT EST Advance Directives Directive Yes / No Effective Date File Name No Information Encounters Encounter Description Practice Location Reason(s) For Visit Diagnoses Date Provider Providers Copied on Encounter OFFICE/OUTPAT IENT VISIT EST [facility], [address], [facility], tel:[phone] [facility] [place] Stress fracture of metatarsal bone 3 0-201 4 Hattie Boudreaux. [address] [place], [place], [id number] . tel: [phone] [facility], [address] [place] [address], [facility], tel:[phone] [facility] [place] Stress fracture of metatarsal bone 0 2-201 4 Hattie Velozh. [address] [place], [place], [id number] . tel: [phone] Family History Family Member Type Diagnosis Age At Onset No Information Payers Payer name Insurance type Covered green party ID Authoriza tion(s) No Information Social History Type Description Quantity Date Captured Comments Sex Female Smoking Status No Information Chief Complaint And Reason For Visit No Information Reason For Referral Reason For Referral No Information Plan Of Treatment Date Type Action Status Referral Ordered: RADEX FOOT COMPL MINIMUM 3 VIEWS LT ordered History Of Present Illness Encounter Date Complaint History Of Prese nt Illness No Information Functional Status Date Functional Assessmen t No Information Medications Administered Medication Instructions Dosage Effective Dates (start - stop) Status Comments No Drug Therapy Prescribed Instructions Date Instruction Additional Infor mation No Information Assessments Type Assessment Date assessment Stress fracture of metatarsal naya ne Patient Care Teams Name Effective Dates (start - stop) Status Members No Information
--- OUTSIDE RECORDS SUMMARY | 2017-04-23 19:00 | XMS_ITS | Continuity of Care Document ---
Author Organization [facility] Address [address] [place] [address] Phone Care Team Providers Care Crane Operator Cab Name Role Phone Unavailable Unavailable Unavailable Advance Directives Directive Yes / No Effective Date File Name No Information Encounters Encounter Description Practice Location Reason(s) For Visit Diagnoses Date Provider Providers Copied on Encounter [facility], [address], [place], [place], [id number], [place] tel:[phone] [facility] No Information No Information Referring Provider: CROW Hope, [address], [place], [address]. tel:[phone] Family History Family Member Type Diagnosis Age At Onset No Information Payers Payer name Insurance type Covered constitution party ID Authoriza tion(s) No Information Social History Type Description Quantity Date Captured Comments Sex Female Smoking Status No Information Chief Complaint And Reason For Visit No Information History Of Present Illness Encounter Date Complaint History Of Prese nt Illness No Information Instructions Date Instruction Additional Infor mation No Information Assessments Type Assessment Date No Information
--- OUTSIDE RECORDS SUMMARY | 2023-10-20 08:40 | XMS_ITS ---
Author Organization [facility] Address [address] [place], [place] [id number] Care Team Providers Care Farm General Manager Name Role Phone SANG HOPKINS Unavailable [phone] Balwinder Mckeon Unavailable Unavailable REASON FOR VISIT Nail sx site is draining and very sore Medications Medication SIG (Take, Route, Frequency, Duration) Notes Start Date End Date Status Labetalol HCl 200 MG 1 tablet Orally Twi ce a day Active Doxycycline Hyclate 100 MG 1 capsule Ora lly twice a day; Duration: 7 days 10/20/2023 10/27/2023 Active Ipratropium-Albuterol Active Lisinopril Active Vital Signs Weight 350 lbs 10/20/2023 Weight-kg 158.76 kg 10/20/2023 Height 61.00 in 10/20/2023 Height-cm 154.94 cm 10/20/2023 BMI 66.12 kg/m2 10/20/2023 Encounters Encounter Location Date Provider Diagnosis [facility] [address] [place], [place] [id number] 10/20/2023 SANG HOPKINS Ingrowing nail L60.0 ; Cutaneous abscess of right foot L02.611 ; Cellulitis of right toe L03.031 and Pain in right toe(s) M79.674 Assessments Encounter Date Diagnosis (ICD Code) Assessment Notes Treatment Notes Treatment Clinical Notes Section Notes 10/20/2023 Ingrowing nail (ICD-10 - L60.0) 10/20/2023 Cutaneous abscess of right foot (ICD-10 - L02.611) 10/20/2023 Cellulitis of right toe (ICD-10 - L03.031) 10/20/2023 Pain in right toe(s) (ICD-10 - M79.674) 10/20/2023 Other I discussed various treatment options to the patient for onychocryptosis. I discussed removal of the offending nail border and chemical matrixectomy to prevent regrowth. The patient decided on permanent removal of the nail border. The consent was signed and placed in the patients chart and all questions were answered. Following skin prep, the toe was injected with 3ccs of a 1:1 mixture of 0.5% marcaine plain and 1% lidocaine plain. A digital tournequet was applied and the offending nail borders was removed. Three applications of 89% phenol for 30 seconds each, were applied to the nail matrix to prevent regrowth. The digital tourniquet was released and the toe was cleansed with isopropyl alcohol. A dry sterile compressive dressing was applied and the patient was given soaking instructions. Plan Of Treatment Medication Medication Name Sig Start Date Stop Date Notes Doxycycline Hyclate 100 MG 1 capsule Ora lly twice a day; Duration: 7 days 10/20/2023 10/27/2023 Treatment Notes Assessment Notes Other I discussed various treatment options to the patient for onychocryptosis. I discussed removal of the offending nail border and chemical matrixectomy to prevent regrowth. The patient decided on permanent removal of the nail border. The consent was signed and placed in the patients chart and all questions were answered. Following skin prep, the toe was injected with 3ccs of a 1:1 mixture of 0.5% marcaine plain and 1% lidocaine plain. A digital tournequet was applied and the offending nail borders was removed. Three applications of 89% phenol for 30 seconds each, were applied to the nail matrix to prevent regrowth. The digital tourniquet was released and the toe was cleansed with isopropyl alcohol. A dry sterile compressive dressing was applied and the patient was given soaking instructions. Progress Notes * NATE JACOBDOB:1985 (40 yo F)Acc No.[id number]:10/20/2023 Patient: Bess NATE CRUZ Provider: Hanna Hopkins DPM :1985 A ge:38 Y S ex:Female Date:10/20/2023 [id number] Subjective: * Chief Complaints: * 1 . Nail sx site is draining and very sore. * HPI: H PI: Follow Up Visit P derrick presents for follow-up visit for nail surgery on her right great toenail, lateral side. She states the surgery was about a month ago. She states she thinks its infected. Ir is swollen, painful and draining. MA: sea. * ROS: G eneral / Constitutional: Patient denies c hills, fever. E ndocrine: Patient denies e xcessive thirst, frequent urination. ? C ardiovascular: Patient denies s hortness of breath, chest pain. S kin: Patient denies m ole changes. * Medical History: * Family History: F ather: PRN - Father: . M other: PRN - Mother: :: Arthritis,,known absent , :: Diabetes,,known absent . * Social History: M igrated Social History: M igrated Social History: History of tobacco use : , Smoking Status : Former smoker. * Medications: T aking Labetalol HCl 200 MG Tablet 1 tablet Orally Twice a day , Taking Lisinopril , Taking Ipratropium-Albuterol , Medication List reviewed and reconciled with the patient Objective: * Vitals: W t:350lbs, Wt-k.76 kg, Ht: 61.00 in, Ht-cm: 154.94 cm, BMI:66.12Index, Body Surface Area: 2.61. * Examination: P hysical Examination: Gen: T he patient is awake, alert, well developed, well groomed and well nourished. They are in no apparent distress. . Musc: F oot structure is normal. No abnormalities noted. Muscle strength is 5/5 to all joints bilaterally. There is no pain on palpation. . Derm: S kin is warm and dry, with no rashes, good skin turgor and normal hair distribution. The medial nail border is incurvated - right great toe. . Neuro: G rossly intact to light touch bilateral.. Vasc: D orsalis pedis and posterior tibial pulses 2+ bilaterally. No edema noted. Capillary fill time < 3 seconds to all digits. . Assessment: * Assessment: 1. I ngrowing nail - L60.0 (Primary) 2 . C utaneous abscess of right foot - L02.611 3 . C ellulitis of right toe - L03.031 4 . P ain in right toe(s) - M79.674 Plan: * Treatment: 2. O thers Notes: I discussed various treatment options to the patient for onychocryptosis. I discussed removal of the offending nail border and chemical matrixectomy to prevent regrowth. The patient decided on permanent removal of the nail border. The consent was signed and placed in the patients chart and all questions were answered. Following skin prep, the toe was injected with 3ccs of a 1:1 mixture of 0.5% marcaine plain and 1% lidocaine plain. A digital tournequet was applied and the offending nail borders was removed. Three applications of 89% phenol for 30 seconds each, were applied to the nail matrix to prevent regrowth. The digital tourniquet was released and the toe was cleansed with isopropyl alcohol. A dry sterile compressive dressing was applied and the patient was given soaking instructions. * Procedure Codes: 1 0061 DRAINAGE OF SKIN ABSCESS, Modifiers: RT * Billing Information: * Visit Code: 88925 Office Visit, Est Pt., Level 3. Modifiers: 25 * Procedure Codes: 08389 DRAINAGE OF SKIN ABSCESS. Modifiers: RT * Electronic signature of SANG HOPKINS DPM on 04/07/2025 at 12:58 AM CDT Sign off status: Pending * Provider: Hanna Hopkins DPM Date: 0 10/20/2023 Generated for Rosemarie harkins/Felicia/Echo on: 0 04/07/2025 12:58 AM CDT History and Physical Notes * HPI (History of Present Illness) Category Sub-Category Detail Notes Category Not es HPI Follow Up Visit Patient presents for follow-up visit for nail surgery on her right great toenail, lateral side. She states the surgery was about a month ago. She states she thinks its infected. Ir is swollen, painful and draining. MA: sea Examination Category Sub-Category Detail Notes Category Not es Physical Examination Gen: The patient is awake, alert, well developed, well groomed and well nourished. They are in no apparent distress. Vasc: Dorsalis pedis and p osterior tibial pulses 2+ bilaterally. No edema noted. Capillary fill time < 3 seconds to all digits. Neuro: Grossly intact to li ght touch bilateral. Musc: Foot structure is no rmal. No abnormalities noted. Muscle strength is 5/5 to all joints bilaterally. There is no pain on palpation. Derm: Skin is warm and dry , with no rashes, good skin turgor and normal hair distribution. The medial nail border is incurvated - right great toe.
--- OUTSIDE RECORDS SUMMARY | 2023-11-03 09:40 | XMS_ITS ---
Author Organization [facility] Address [address] [place], [place] [address] Care Team Providers Care Pre Fabricator Name Role Phone SANG HOPKINS Unavailable [phone] Balwinder Mckeon Unavailable Unavailable REASON FOR VISIT *Nail surgery follow-up Medications Medication SIG (Take, Route, Fr equency, Duration) Notes Start Date End Date Status Labetalol HCl 200 MG 1 tablet Orally Twice a day Active Lisinopril Active Ipratropium-Albuterol Active Encounters Encounter Location Date Provider Diagnosis [facility] [place] [address] [place], [place] [id number] 11/03/2023 SANG HOPKINS Plan Of Treatment No Information Progress Notes * NATE JACOBDOB:1985 (40 yo F)Acc No.[id number]:11/03/2023 Patient: NATE BEAUCHAMP Provider: Hanna Hopkins DPM :1985 A ge:38 Y S ex:Female Date:11/03/2023 [id number] Subjective: * Chief Complaints: * 1 . *Nail surgery follow-up. * Medical History: * Medications: T aking Labetalol HCl 200 MG Tablet 1 tablet Orally Twice a day , Taking Lisinopril , Taking Ipratropium-Albuterol Objective: * Vitals: Assessment: Plan: * Treatment: * Billing Information: * Visit Code: * Procedure Codes: * Electronic signature of SANG HOPKINS DPM on 04/07/2025 at 12:59 AM CDT Sign off status: Pending * Provider: Hanna Hopkins DPM Date: 0 11/03/2023 Generated for Rosemarie harkins/Felicia/Echo on: 0 04/07/2025 12:59 AM CDT
[2025-03-26 12:54] VITALS: BMI 68.5
--- NOTE | 2025-03-26 13:05 | PC.NURSE ---
Report to the Outpatient Waiting Room, entrance under the green pavilion located off [facility], at time _0600_ on date __04/07/25. Planned Procedure Time: _0730_.? Time changes happen often and if your time is changed the preop area will call you the afternoon before. - You and your visitor will be asked to self-screen and do not enter if you have any COVID symptoms. Please call surgeon if you need to reschedule. - A mask is optional within the hospital at this time. Patients may have clear liquids (water, carbonated beverages, clear teas, apple juice) until 3 hours prior to surgery with a maximum of 20 ounces. - No food from midnight until time of surgery and no smoking, or chewing tobacco (or any form of nicotine). No chewing gum, candy or mints. - Infants may have breast milk until 4 hours before surgery, infant formula 6 hours prior to surgery. - Children will be allowed to drink immediately following surgery.? If applicable, please bring a bottle or sippy cup to assist with drinking. Juice, water, soda, and popsicles are readily available.? For infants on formula, please bring formula the day of surgery.? Pacifiers are allowed. Take only the following medications with a SIP of water on the morning of surgery: ____LEXAPRO, LABATALOL___ DO NOT STOP ANY OF YOUR OTHER PRESCRIPTION MEDICATIONS PRIOR TO SURGERY EXCEPT THE FOLLOWING Hold all vitamins and supplements for 3 days per anesthesiologist. Medications to discontinue per physician Date to take last dose Please no make-up, nail czech, hairspray, perfume, deodorant, or body powder the day of surgery.? No jewelry (including any body piercings) or valuables the day of surgery, leave them at home.? Please take a shower or bath the night before, or the morning of, surgery with an antibacterial soap.? Wear comfortable, loose fitting clothing.? Children are encouraged to wear pajamas. - Jewelry must be removed prior to entering the operating room.? Rings and piercings that are not removed may be cut off. - The hospital will not accept responsibility for valuables.? - Please leave all valuables, including medications, at home the day of surgery. If you are going home after surgery, a licensed paratransit driver must drive you home.? - NO public transportation without another adult if you receive anesthesia. - We recommend that an adult stay with you for 24 hours following discharge. - We also recommend that you do not drive, make important decision, drink alcoholic beverages, or take any drugs that were not prescribed by your health care provider for at least 24 hours after your discharge time. For Pediatric surgeries, we recommend two adults accompany the child home. Follow any additional instructions given to you from your surgeon. Telephone instructions given to OMKAR_and asked if any additional questions and then verbalized understanding. Patient advised to call surgeon office or pre surgery nurse liaison [phone] if any additional questions.
--- OUTSIDE RECORDS SUMMARY | 2025-04-07 00:59 | XMS_ITS | Clinical Summary ---
Author Organization [facility] Address [address] [place] [address] Care Team Providers Care Dry Roaster Name Role Phone Linda Adair MD Primary Care Provider [phone] Source Comments [facility],non-owned Affiliates and Associated Physician Practices is amultiple site organization consisting of ambulatory clinics and hospital sitesin [place], [place] and [place]. This disclosure is being madepursuant to the Care Everywhere program and may not contain all information available regarding this patient. Last updated 18.[facility] [place] Allergies Active Allergy Reactions Criticality Noted Date Comments Tree Nuts Shortness of Breath High 07/18/2013 Throat swells up Medications * Be aware that medications may not be up to date on this document. Alwaysverify current medications with the patient. fluticasone propionate (FLONASE) 50 MCG/ACT nasal spray Walton 1 Walton into each nostril 2 times daily 1 Bottle 1 06/25/2015 Active Loratadine (CLARITIN PO) Active ferrous sulfate 325 (65 FE) MG tablet Take 1 (one) tablet by mouth once daily Active butalbital-acet aminophen-caffe ine (FIORICET) 50-325-40 MG tablet Take 1 (one) tablet by mouth every 4 hours as needed for Headache Active escitalopram (Lexapro) 20 MG tablet Take 1 (one) tablet by mouth once daily 30 tablet 2 03/03/2023 Active Slynd 4 MG TABS tablet Take 1 (one) tablet by mouth once daily 02/07/2023 Active labetalol (Normodyne; Trandate) 200 MG tablet 02/26/2023 Active lisinopril (Prinivil; Zestril) 20 MG tablet 01/10/2023 Active ibuprofen (Motrin) 600 MG tablet Take 1 (one) tablet by mouth every 6 hours as needed for Pain 30 tablet 03/14/2023 Active acetaminophen (Tylenol) 500 MG capsule Take 2 (two) capsules by mouth every 6 hours as needed for Fever or Pain 50 capsule 03/14/2023 Active docusate sodium (Colace) 100 MG capsule Take 1 (one) capsule by mouth once daily 60 capsule 03/14/2023 Active medroxyPROGESTE Devang (Provera) 10 MG tablet TAKE 2 TABLETS BY MOUTH THREE TIMES DAILY FOR 7 DAYS, THEN 2 TABS ONCE DAILY FOR 30 DAYS 03/18/2023 Active naproxen (Naprosyn) 500 MG tablet 03/24/2023 Active diclofenac sodium (Voltaren) 1 % gel Apply 4 (four) g to affected area 4 times daily 150 g 07/02/2024 Active Active Problems Problem Noted Date Diagnosed Date Vaginal bleeding 03/02/2023 Benign essential hypertension during 0 09/26/2019 Overview (02/12/2020): O+ Neg, Non-Immune, Rpr-NR, Hbsag-NR, HIV-NR Plts 309 HgA1C 5.6 01/13/2020 [<20 wks] : 24 hr Urine 578 Assessment & Plan (02/12/2020 11:33 AM CDT): Started aspirin prior to 20 weeks. Blood pressure appropriate on low-dose labetalol. Has access to a home blood pressure cuff. Baseline 24 hr urine with macro proteinuria as evidence of mild renal effects from chronic hypertension. Chronic Hypertension Chronic hypertension is associated with a 20-25% risk for superimposed preeclampsia. The risk of recurrence of preeclampsia in a subsequent has been reported to be up to 14 percent. I discussed with Lesvia that the diagnosis of superimposed preeclampsia versus chronic hypertension flares is difficult to make. I discussed the natural course of benign essential hypertension during as being mild improvement during the 2nd trimester with gradual increase and return to pre blood pressures in the 3rd trimester. There is definitely the potential to overdiagnose preeclampsia. Despite this, there is greater potential for adverse outcomes in preeclampsia compared to chronic hypertension. In the context of superimposed preeclampsia, there is ambiguity over whether mildly elevated blood pressures are evidence of superimposed preeclampsia versus the physiologic changes of blood pressure from . It is also unclear whether or not severe features of superimposed preeclampsia should be diagnosed based on blood pressures alone as chronic hypertensive persons are already susceptible to fluctuations in blood pressure. More clear cut signs of severe features are symptoms such as: persistent headache, not relieved by analgesia; persistent right upper quadrant or epigastric pain or new-onset nausea and vomiting; visual changes. Signs that are more consistent with severe features include: pulmonary edema, increase in serum creatinine twice above patient baseline, liver function test two times greater than the upper limit of normal or platelet counts less than 100. Low dose aspirin has a small-moderate benefit in the prevention of preeclampsia in at risk women (Leslie DSR, 2008). There is no significant risk of low dose aspirin if initiated after the first trimester of . Low dose aspirin therapy is discussed. Antihypertensive therapy does not reduce the risk for superimposed preeclampsia. Diuretic therapy during is associated with a reduction in the normal physiologic expansion of plasma volume. The targets of therapy with chronic hypertension are typically <160 mm Hg systolic and 90-105 mm Hg diastolic. Consistent blood pressures above 155/95 would be an indication to initiate antihypertensive medication. Aggressive normalization of blood pressure does not have benefit otherwise; it may have an undesirable impact on outcome. Aggressive treatment of hypertension does not reduce the risk for superimposed preeclampsia. Chronic hypertension is associated with an elevated risk of growth disturbance. It provides an indication for periodic assessments of the growth throughout . A reasonably aggressive approach is an ultrasound for growth at 28 weeks gestation with subsequent assessments at 4-6 week intervals thereafter (NIH, 2000). Chronic hypertension is associated with an elevated risk for morbidity and mortality. It provides an indication for formal antepartum surveillance. Such surveillance is typically initiated at 32 weeks gestation. movement monitoring is an adjunct form of surveillance. Maternal Medicine recommendations: 1. monitor home blood pressures daily and record values for review with the hydraulic technician 1. Goal blood pressures <155/95 2. no need for titration of antihypertensive medication unless blood pressures consistently above goal 3. no benefit from normalization of blood pressures 2. Aspirin ( 162 mg) --patient prescription provided 3. Serial growth every four weeks 4. Daily kick count starting at 28 weeks 5. Weekly 10 point biophysical profile starting at 32 weeks 6. serum laboratory criteria, persistent preeclampsia symptoms or severe uncontrolled hypertension is the preferred criteria for the diagnosis of superimposed preeclampsia, rather than mild gradual increases in blood pressure, in the 3rd trimester, with a need for medication adjustments 7. Delivery initiation at 39 weeks 8. Would benefit from and weight reduction Maternal morbid obesity, antepartum 07/18/2013 Overview (02/12/2020): baseline hemoglobin A1c 5.6 Assessment & Plan (02/12/2020 11:34 AM CDT): Has already gained approximately 15 lb compared to 1st visit weight. Maternal Medicine recommendations: 1. recommended minimal to no additional weight gain during this 2. Should have glucose challenge test performed between 26-28 weeks 3. Recommended and weight reduction Cervical insufficiency in , antepartum 07/18/2013 Overview (02/10/2020): 12/11/19 Cerclage placed at 17w5d. Assessment & Plan (02/12/2020 11:42 AM CDT): cerclage being managed by referring hydraulic technician Migraines Overview (02/12/2020): takes Fioricet Assessment & Plan (02/12/2020 11:40 AM CDT): Maternal Medicine recommendations: 1. riboflavin prescribed for headache prevention Arthritis of left knee Assessment & Plan (02/12/2020 11:40 AM CDT): Maternal Medicine recommendations: 1. referred to physical therapy due to ongoing pain and instability of left knee during 2. VTE precautions emphasized Resolved Problems Problem Noted Date Diagnosed Date Resolved Date Morbid obesity 09/26/2019 02/10/2020 Prediabetes 09/26/2019 02/12/2020 Anxiety attack 09/26/2019 02/12/2020 Allergic rhinitis 06/23/2015 02/10/2020 Dysfunctional uterine bleeding 07/21/2014 09/18/2015 Anemia 07/21/2014 02/10/2020 Retained foreign body 07/24/20132015 Overview (07/24/2013): Plastic umbilical cord clamp placed on umbilical cord after delivery of baby A. Present at time of discharge intrauterine. Please ensure removal after delivery premature rupture of membranes (PPROM) delivered, current hospitalization 07/21/2013 09/18/2015 Overview (07/21/2013): Rupture of Twin B Supervision of high-risk 07/18/2013 07/18/2013 Overview (07/18/2013): O+ HIV negative Early GCT 136 Dichorionic diamniotic twin 07/18/2013 09/18/2015 Overview (07/18/2013): A: posterior placenta with lateral cord insertion B: anterior placenta with partial circumvallate cord insertion Prior poor obstetrical history, antepartum 07/18/2013 09/18/2015 Overview (07/18/2013): 21 week SAB at [place], with possible cervical insufficiency On vaginal progesterone Supervision of high-risk 07/18/2013 09/18/2015 Overview (07/18/2013): O+, HIV negative Dating LMP=8week in [facility] Papanicolaou smear of cervix with atypical squamous cells of undetermined significance (ASC-US) 07/18/2013 02/10/2020 Immunizations Immunization Administration Dates Next Due TDAP (7yrs+) 09/18/2015 Family History * Patient is adopted Medical History Relation Name Comments Cancer Maternal Grandfather Diabetes Mother Relation Name Status Comments Maternal Grandfather Mother Social History Tobacco Use Types Packs/Day Years Used Date Smoking Tobacco: Former Cigarettes Q uit: 2006 Smokeless Tobacco: Never Tobacco Cessation:Counseling Given: Not Answered Alcohol Use Standard Drinks/Week Comments No 0 (1 standard drink = 0.6 oz pur e alcohol) AUDIT-C Answer Date Recorded Q1: How often do you have a drink containing alcohol? Never 03/14/2023 Q2: How many drinks containi ng alcohol do you have on a typical day when you are drinking? Patient does not drink 3 Q3: How often do you have si x or more drinks on one occasion? Never 03/14/2023 Overall Financial Resource Strain (CARDIA) Answe r Date Recorded How hard is it for you to pa y for the very basics like food, housing, medical care, and heating? Somewhat hard 03/02/2023 PHQ-2 Answer Date Recorded PHQ2 TOTAL SCORE 6 03/08/2023 [facility] - Occupational Stress Questionnaire Answer Date Recorded Do you feel stress - tense, restless, nervous, or anxious, or unable to sleep at night because your mind is troubled all the time - these days? Only a little 03/02/2023 Hunger Vital Sign Answer Date Recorded Within the past 12 months, y ou worried that your food would run out before you got the money to buy more. Often true 03/02/20 Within the past 12 months, t he food you bought just didn't last and you didn't have money to get more. Often true 03/02/2023 PRAPARE - Transportation Answer Date Re corded In the past 12 months, has l ack of transportation kept you from medical appointments or from getting medications? No 02/12 In the past 12 months, has l ack of transportation kept you from meetings, work, or from getting things needed for daily living? No 03/02/2023 Housing Stability Vital Sign Answer Antwan e Recorded In the last 12 months, was t here a time when you were not able to pay the mortgage or rent on time? No 03/02/2023 In the last 12 months, how many places have you lived? 1 03/02/2023 In the last 12 months, was t here a time when you did not have a steady place to sleep or slept in a skilled nursing (including now)? No 03/02/2023 Comments No Sex and Gender Information Value Date Recorded Sex Assigned at Not on file Legal Sex Female 9:01 AM EMERGENCY DOCTOR Gender Identity Not on file Sexual Orientation Not on file Last Filed Vital Signs Vital Sign Reading Time Taken Comments Blood Pressure 164/98 07/02/2024 12:31 PM EMERGENCY DOCTOR Pulse 61 07/02/2024 11:25 AM EMERGENCY DOCTOR Temperature 37.3 C (99.1 F) 07/02/2024 11:25 AM EMERGENCY DOCTOR Respiratory Rate 18 07/02/2024 11:25 AM EMERGENCY DOCTOR Oxygen Saturation 98% 07/02/2024 12:31 PM EMERGENCY DOCTOR Inhaled Oxygen Concentration - - Weight 147.9 kg (326 lb) 07/02/2024 9:27 AM EMERGENCY DOCTOR Height 157.5 cm (5' 2) 07/02/2024 9:27 AM EMERGENCY DOCTOR Body Mass Index 59.63 07/02/2024 9:27 AM EMERGENCY DOCTOR Plan of Treatment Health Maintenance Due Date Last Done Comments HEPATITIS B VACCINE (1 of 3 - 19+ 3-dose series) 2005 HPV VACCINE (1 - 3-dose SCDM series) 2013 PAP SMEAR 04/28/2018 04/28/2015 COVID-19 VACCINE (1 - 2023-2 5 season) 2024 DEPRESSION SCREENING 08/14/2024 INFLUENZA VACCINE (#1) 2025 06/19/2013 DTAP/TDAP/TD VACCINES (2 - T d or Tdap) 09/18/2025 09/18/2015 ZOSTER VACCINE (1 of 2) 02/18/2036 HEPATITIS C SCREENING Completed 04/01/2014 HIV SCREENING Completed 04/01/2014, 05/28/2013 HIB VACCINE Aged Out No longer eligi ble based on patient's age to complete this topic MENINGOCOCCAL (Group B) VACCINE SHARED DECISION-MAKING Aged Out No longer eligible based on patient's age to complete this topic MENINGOCOCCAL GROUPS A/C/Y/W VACCINE Aged Out No longer eligible b ased on patient's age to complete this topic PNEUMOCOCCAL VACCINE Aged Out No long er eligible based on patient's age to complete this topic Goals Goal Patient Goal Type Associated Problems Recent Progress Patient-Stated? Author Yearly PCP visit Lifestyle No Elo Hannah MA Procedures Procedure Name Priority Date/Time Associated Diagnosis Comments PAP IMAGE-GUIDED W HPV Routine 04/28/2015 12:00 AM CDT HEPATITIS C ANTIBODY Routine 04/01/2014 2:15 PM CDT HIV-1 HIV-2 ANTIBODIES W RFLX REFLEXED Routine 04/01/2014 2:15 PM CDT from Last 3 Months or Most Recently Relevant to Health Maintenance Results * PAP IMAGE-GUIDED LIQUID BASE W HPV (04/28/2015 12:00 AM CDT) Pap Image-Guided Liquid-Based with HPV Specimen:Endocervi chava ThinPrep Slides:1 SPECIMEN ADEQUACY: SATISFACTORY FOR EVALUATION - Endocervical / Transformation Zone Component Present INTERPRETATION: NEGATIVE FOR INTRAEPITHELIAL LESION OR MALIGNANCY NOTE(S): HPV DIRECT - HPV Result to Follow This specimen was evaluated by the ThinPrep Imaging System along with an additional manual rescreening by a retail cashier and/or pathologist Interpretation performed by Winifred PARSON(ASCP). Electronically signed 04/30/2015 [facility] ([facility]) Endocervical 04/28/2015 04/29/2015 1 :31 PM CDT Lisa Jeong MD LAB - PATHOLOGY/CYTOLOGY ORDERAB LES Final Result [facility] ([facility]) * HIV-1 HIV-2 ANTIBODIES W RFLX REFLEXED (04/01/2014 2:15 PM CDT) HIV 1/2 EIA Antibody NON-REACTI VE NON-REACT [facility] ([facility]) Comment: A Nonreactive HIV 1/2 antibody result does not exclude HIV infection since the time frame for seroconversion is variable. If acute HIV infection is suspected, HIV-1 RNA TMA Qualitative (69701) testing is recommended. Test Performed at: [facility] [id number] [place] [address] SALVATORE YAÑEZ DO,MPH 04/01/2014 2:15 PM CDT 04/01/2014 2:15 PM CDT Ju Enriquez MD LAB - CHEMISTRY ORDERABLES Edited Result - Final [facility] ([facility]) [id number] * HEPATITIS C ANTIBODY (04/01/2014 2:15 PM CDT) Hepatitis C Antibody NON-REACTI VE NON-REACT [facility] ([facility]) Signal/Cutoff 0.04 <1.00 [facility] ([facility]) Comment: Test Performed at: [facility] [id number] [place] [address] SALVATORE YAÑEZ DO,MPH Blood specimen (specimen) BLOOD SPECIMEN / Unknown 04/01/2014 2:15 PM CDT 04/01/2014 2:15 PM CDT Ju Enriquez MD LAB - CHEMISTRY ORDERABLES Edited Result - Final [facility] ([facility]) [address] [place] [address] from Last 3 Months or Most Recently Relevant to Health Maintenance Insurance [facility] NA * Guarantor: LESVIA HILL R Account Type Relation to Patient Date of Phone Billing Address Personal/Family [address] Advance Directives * Full Code (Latest Code Status on File) Date Activated Date Inactivated Comments 03/02/2023 8:27 AM 03/02/2023 4:21 PM * FULL RESUSCITATION Date Activated Date Inactivated Comments 07/31/2013 4:33 PM 08/02/2013 7:39 PM * FULL RESUSCITATION Date Activated Date Inactivated Comments 07/20/2013 10:33 AM 07/24/2013 4:54 PM * FULL RESUSCITATION Date Activated Date Inactivated Comments 07/18/2013 10:26 AM 07/20/2013 10:33 AM Care Teams Dry Roaster Relationship Specialty Start Date End Date Linda Adair MD [address] [place] [address] PCP - General Family Medicine 03/02/23
--- OUTSIDE RECORDS SUMMARY | 2025-04-07 00:59 | XMS_ITS | Clinical Summary ---
Author Organization [facility] [address] Address [address] [place] [address] Phone Care Team Providers Care Embedded Systems Software Engineer Name Role Phone Unavailable Primary Care Provider Unavailabl e Allergies Active Allergy Reactions Criticality Noted Date Comments Tree Nuts Shortness of Breath/Wheezing High 07/18/2013 Throat swells up Medications labetaloL (NORMODYNE) 200 mg tablet Take 200 mg by mouth 2 times daily. Active lisinopriL (PRINIVIL) 20 mg tablet Take 20 mg by mouth daily. Active escitalopram oxalate (LEXAPRO) 20 mg tablet Take 20 mg by mouth daily. Active cyclobenzaprine (FLEXERIL) 10 mg tablet Take 10 mg by mouth 3 times daily. Active aspirin-acetami nophen-caffeine (EXCEDRIN EXTRA STRENGTH) 250-250-65 mg Tablet Take 1 Tablet by mouth every 4 hours as needed for Headaches. Active fluticasone propionate (FLONASE) 50 mcg/spray [place], Suspension nasal inhaler Administer 1 [place] in each nostril daily. 5 Active loratadine (CLARITIN) 10 mg tablet Take 10 mg by mouth daily. Active ibuprofen (MOTRIN) 600 mg tablet Take 600 mg by mouth every 8 hours as needed. 3 Active Social History Tobacco Use Types Packs/Day Years Used Date Smoking Tobacco: Former Cigarettes Smokeless Tobacco: Never Tobacco Cessation:Counseling Given: Not Answered Comments:Quit smoking in 2009 Alcohol Use Standard Drinks/Week Comments Not Currently 0 (1 standard drink = 0.6 oz pur e alcohol) Comments No Sex and Gender Information Value Date Recorded Sex Assigned at Not on file Legal Sex Female 10:33 AM CDT Gender Identity Not on file Sexual Orientation Not on file Last Filed Vital Signs Vital Sign Reading Time Taken Comments Blood Pressure - - Pulse - - Temperature - - Respiratory Rate - - Oxygen Saturation - - Inhaled Oxygen Concentration - - Weight 156.9 kg (346 lb) 11/28/2024 4:23 PM CDT Height 157.5 cm (5' 2) 11/28/2024 4:23 PM CDT Body Mass Index 63.28 11/28/2024 4:23 PM CDT Plan of Treatment Upcoming Encounters Date Type Department Care Team (Late st Contact Info) Description 06/04/2025 9:00 AM CDT Office Visit [facility] [address] [place] [address] Yovany John MD [address] [place] [address] Health Maintenance Due Date Last Done Comments Pre-Diabetes and Diabetes Screening 1985 HEPATITIS B VACCINES (1 of 3 - 19+ 3-dose series) 02/2005 HPV/Cotest (21-29) 2007 HPV VACCINES (1 - 3-dose SCDM series) 2013 CERVICAL CANCER SCREENING 02/18/2016 HPV/Cotest (30-65) 02/18/2016 PAP SMEAR 02/18/2016 INFLUENZA VACCINE (#1) 2025 DTAP/TDAP/TD VACCINES (2 - Td or Tdap) 09/18/2025 Insurance [facility] OPEN ACCESS HMO
--- OUTSIDE RECORDS SUMMARY | 2025-04-07 00:59 | XMS_ITS | Patient Health Record ---
Author Organization [facility] Address [address] [place], [place] [address] Care Team Providers Care Bi Analyst Name Role Phone SANG AGUDELO Unavailable [phone] Balwinder Mckeon Unavailable Unavailable Allergies No Known Allergies Reason For Referral No Information Medications Medication SIG (Take, Route, Fr equency, Duration) Notes Start Date End Date Status Labetalol HCl 200 MG 1 tablet Orally Twice a day Active Lisinopril Active Ipratropium-Albuterol Active Plan Of Treatment No Information Insurance Providers Payer Name Payer Address Payer Phone Subscriber Number Group Number Insured Name Patient Relationship to Insured Coverage Start Date Coverage End Date [employer] [address] [place], [place] [phone] [id number] ANGELA JACOB Spouse - patient is the spouse of the insured
[2025-04-07 06:13] VITALS: BP 180/100; PULSE 69; RESP 20; TEMP 36.1; O2SAT 100
[2025-04-07 06:21] VITALS: BP 184/103
[2025-04-07] MEDS: ACETAMINOPHEN 500 MG TABLET 1000 MG PO (06:24)
[2025-04-07] MEDS: LACTATED RINGERS 1,000 ML 30 ML IV CONT (07:00)
--- NOTE | 2025-04-07 07:17 | WPDANESEPPF ---
Anes - Initial Pre Proc Eval Procedure: Operation Date: 04/07/25 07:30 Proposed Procedures p Hysteroscopy Dilation and Curettage - Mary Garibay MD Date/Time: 04/07/25 07:17 Surgeon: Mary Garibay MD Pre Op Diagnosis: menorrhagia Patient Data Age: 40 Gender: F Height: 1.57 m Weight: 170 kg Allergies Allergy/AdvReac Type Severity Reaction Status Date / Time almond Allergy Severe Swelling Verified 04/07/25 06:17 turkey Allergy Mild Hives Uncoded 04/07/25 06:17 Home Medications ?Medication ?Instructions ?Recorded ?Confirmed ?Type drospirenone (contraceptive) 4 mg 1 tablet PO DAILY 02/03/23 03/26/25 History (28) tablet (Slynd) fluticasone propionate 50 1 spray intranasal DAILY PRN 04/29/24 04/07/25 Rx mcg/actuation nasal Allergy Symptoms #16 grams spray,suspension (Flonase Allergy Relief) labetalol 200 mg tablet See Rx Instructions .Route 05/14/24 04/07/25 Rx .COMPLEX #180 tabs lisinopril 20 mg tablet 20 mg PO DAILY #90 tabs 06/26/24 04/07/25 Rx escitalopram oxalate 20 mg tablet 20 mg PO DAILY #90 tabs 07/14/24 04/07/25 Rx (Lexapro) cyclobenzaprine 10 mg tablet 10 mg PO TID #30 tabs 02/09/25 04/07/25 Rx meloxicam 15 mg tablet 15 mg PO DAILY #90 tabs 03/24/25 04/07/25 Rx Patient hx anesthesia problems: none Family hx anesthesia problems: none Results Review: All pre-operative results and documents have been reviewed as part of the pre-operative evaluation. [facility] Past Medical History Medical History Hand pain, right Iron deficiency anemia Vaginal delivery x2 Irregular bleeding Thickened endometrium Kidney cysts Pelvic prolapse Obstructive sleep apnea (adult) (pediatric) GDM, class A1 Pre-eclampsia superimposed on chronic hypertension Dizziness Nausea & vomiting COSME on CPAP Morbid obesity Osteoarthritis of left knee IBS (irritable bowel syndrome) Hypertension Surgical History Surgical History History of cervical cerclage x2 History of tonsillectomy History of meniscectomy of left knee Family History Family History Mother Diabetes mellitus Depression Hypertension Grandparent Hypertension Malignant neoplasm of prostate Scoliosis Mother Diabetes mellitus Fibromyalgia Thrombocytopathy Grandparent Skin cancer Asthma Depression Other Asthma cousin Social History Social History Smoking packs per day: 0.15 Smoking cigarettes per day: 3.0 Years smoked: 9 Smoking pack-years: 1.35 Smoking status: Former smoker Tobacco type: cigarettes Second hand tobacco smoke exposure: No Additional smoking assessment comments: QUIT 2014 Alcohol intake: never Substance use: current Substance use type: marijuana Other substance usage details: CBD GUMMIES Last use: ONCE A MONTH USE Do You Feel Safe in your Home?: Yes Lack of Transportation: No Lack of Food: Sometimes True Current Housing: I Have Housing Concerned About Future Housing: No Difficulty Paying Gas/Electric Bills: No Difficulty Paying for Meds: No Currently Unemployed: No Education: High School Diploma/GED Difficulty w/ Childcare or Family Care: YES Living arrangements: with family Occupation/Education: occupation Gender identity (if verbalized by the patient): Female Spiritual care concerns: No Agree to blood products: Yes Anes - Eval Final PreProcedure Day of Procedure 04/07/25 07:17 Patient weight: super morbidly obese Heart: regular rate and rhythm Lungs: decreased breath sounds Airway: Mallampati scale class II Neurological: alert and oriented Last oral intake: >/= 8 hours ASA classification: III Emergent: no Anesthetic plan: proceed Anesthesia type and monitoring: general GIVS and standard monitoring Results Review: All pre-operative results and documents have been reviewed as part of the pre-operative evaluation. Informed Consent: The patient's anesthetic plan and its attendant risks and benefits were discussed with the patient/family/POA. Questions were solicited and answers provided to the satisfaction of the patient/family/POA.
--- NOTE | 2025-04-07 07:22 | WPDHPUPDATE1 ---
History and Physical Update Update Date/Time: 04/07/25 07:22 History and Physical has been reviewed, including an updated exam of the patient. There are NO changes in the patient's condition. Risks, benefits, and alternatives have been discussed and questions answered. Patient agrees to proceed with procedure.
--- NOTE | 2025-04-07 07:22 | PM.HPGS ---
History of Present Illness History of Present Illness Consent: Risks, benefits, and alternatives have been discussed and questions answered. Patient agrees to proceed with procedure. Chief complaint: menorrhagia Narrative: Lesvia Duckworth is a 40 year old female with prolonged bleeding for 5 months. The patient had been on Micronor and cycles had been regular. The patient stopped her Micronor and she began bleeding daily for 5 months. The last 2 months have been heavier changing a pad up to every 20minutes. It was recommended to undergo D&C hysteroscopy to evaluate the endometrium. Risks of the procedure were reviewed including infection, bleeding, perforation and possible pathology. Patient voices understanding and agrees to proceed. Review of Systems Review of Systems: not repeated day of surgery; patient states no changes in status PMFSH Past Medical History Medical History (Updated 04/07/25 @ 07:29 by Mary Garibay MD) History of migraine History of delivery 22weeks 19 week-D&E for demise of twins Iron deficiency anemia Vaginal delivery x2 Irregular bleeding Thickened endometrium Kidney cysts Pelvic prolapse Obstructive sleep apnea (adult) (pediatric) GDM, class A1 Pre-eclampsia superimposed on chronic hypertension Nausea & vomiting COSME on CPAP Morbid obesity Osteoarthritis of left knee IBS (irritable bowel syndrome) Hypertension Surgical History Surgical History (Updated 04/07/25 @ 07:27 by Mary Garibay MD) History of D&C actually D and E at 19 weeks 2012 secondary to demise of twins History of cervical cerclage x2 History of tonsillectomy History of meniscectomy of left knee Family History Family History Mother Diabetes mellitus Depression Hypertension Grandparent Hypertension Malignant neoplasm of prostate Scoliosis Mother Diabetes mellitus Fibromyalgia Thrombocytopathy Grandparent Skin cancer Asthma Depression Other Asthma cousin Social History Social History Smoking packs per day: 0.15 Smoking cigarettes per day: 3.0 Years smoked: 9 Smoking pack-years: 1.35 Smoking status: Former smoker Tobacco type: cigarettes Second hand tobacco smoke exposure: No Additional smoking assessment comments: QUIT 2014 Alcohol intake: never Substance use: current Substance use type: marijuana Other substance usage details: CBD GUMMIES Last use: ONCE A MONTH USE Do You Feel Safe in your Home?: Yes Lack of Transportation: No Lack of Food: Sometimes True Current Housing: I Have Housing Concerned About Future Housing: No Difficulty Paying Gas/Electric Bills: No Difficulty Paying for Meds: No Currently Unemployed: No Education: High School Diploma/GED Difficulty w/ Childcare or Family Care: YES Living arrangements: with family Occupation/Education: occupation Gender identity (if verbalized by the patient): Female Spiritual care concerns: No Agree to blood products: Yes Meds Home Medications and Allergies Home Medications ?Medication ?Instructions ?Recorded ?Confirmed ?Type drospirenone (contraceptive) 4 mg 1 tablet PO DAILY 02/03/23 03/26/25 History (28) tablet (Slynd) fluticasone propionate 50 1 spray intranasal DAILY PRN 04/29/24 04/07/25 Rx mcg/actuation nasal Allergy Symptoms #16 grams spray,suspension (Flonase Allergy Relief) labetalol 200 mg tablet See Rx Instructions .Route 05/14/24 04/07/25 Rx .COMPLEX #180 tabs lisinopril 20 mg tablet 20 mg PO DAILY #90 tabs 06/26/24 04/07/25 Rx escitalopram oxalate 20 mg tablet 20 mg PO DAILY #90 tabs 07/14/24 04/07/25 Rx (Lexapro) cyclobenzaprine 10 mg tablet 10 mg PO TID #30 tabs 02/09/25 04/07/25 Rx meloxicam 15 mg tablet 15 mg PO DAILY #90 tabs 03/24/25 04/07/25 Rx Allergies Allergy/AdvReac Type Severity Reaction Status Date / Time almond Allergy Severe Swelling Verified 04/07/25 06:17 turkey Allergy Mild Hives Uncoded 04/07/25 06:17 Exam Const: General: obese ( weight 381) Orientation/consciousness: patient oriented x3 Resp: Effort & Inspection: normal respiratory effort Auscultation: clear to auscultation bilaterally Cardio: Rate: regular rate : External Female Exam: normal external appearance Speculum Exam - Vagina: normal appearance of the vagina and normal vaginal discharge Speculum Exam - Cervix: normal appearance of the cervix Bimanual exam- vagina & uterus: uterine size normal and consistency normal Bimanual Exam- Adnexa, other: normal adnexae and No adnexal tenderness Neuro: General: patient oriented x3 Assessment and Plan Assessment and plan (1) Menorrhagia: Code(s): N92.0 - Excessive and frequent menstruation with regular cycle Status: Acute Assessment and Plan: plan to proceed with D&C hysteroscopy
[2025-04-07 07:23] LABS: BEDSIDEPREGUCG Negative (Negative)
--- NOTE | 2025-04-07 07:24 | SUR.PREOP ---
0714-Dr. Otto aware of pt's B/P-will proceed.
[2025-04-07 07:26] LABS: BEDSIDEPREGUCG Negative (Negative)
--- NOTE | 2025-04-07 07:32 | SUR.PREOP ---
0714-Dr. Otto aware of pt's B/P, will proceed.
[2025-04-07] MEDS: KETOROLAC 30 MG/ML VIAL (*BKC) IV PUSH (07:50)
--- NOTE | 2025-04-07 07:52 | S_PTH ---
[id number]#:[id number] AGE/SX: 40/F ROOM: RE04/07/[address]: Mary Garibay MD : 1985 BED: DIS: 04/07/2025 SPEC #: [id number] RECD: 04/07/25 10:30 STATUS: AMANDA REQ #: [id number] [place]: 04/07/25 07:[address]: Mary Garibay DEPT: [facility] Surgical RECD BY: Elham Leos ENTERED: 04/07/25 10:30 SP TYPE: Surgical OTHR DR: Linda AdairMD Tissues: A - Endometrial Curettings Procedures: Hematoxylin and Eosin Stain Gross and Microscopic Level 4
--- NOTE | 2025-04-07 07:57 | P.OP_ITS ---
Procedure Note - Detailed Date of Procedure 04/07/25 Pre-op Diagnosis menorrhagia Post-op Diagnosis Same Procedure Performed D&C hysteroscopy Surgeon Mary Garibay MD Anesthesia MAC Findings Uterus sounds to 10cm and appears grossly normal. Description of Procedure The patient is taken to the operating room and placed under anesthesia in the dorsal lithotomy position. She was prepped and draped in the usual sterile fashion. Madison speculum was placed in the vagina and the cervix grasped on the anterior lip with a tenaculum. The uterus is sounded to 10cm. The diagnostic hysteroscope was placed and with no abnormalities noted it is removed. The sharp curette is used to curette the endometrium until a good uterine cry was noted in all areas. All instruments are removed. Sponge, needle, and instrument counts are correct per the OR staff. The patient was awakened from anesthesia and taken to recovery in stable condition. Estimated Blood Loss 5 Drains No Packing No Pathology Yes (Endometrial curettings) Complications No immediate complications Condition Stable Disposition PACU
[2025-04-07 08:00] VITALS: BP 144/76; PULSE 70; RESP 18; O2SAT 98
[2025-04-07 08:30] VITALS: BP 156/88; PULSE 61
== END 2025-04-07 08:57 | disposition home or self-care (01) ==
PROVIDERS: PCP Family Medicine; Visit Provider Obstetrics & Gynecology Gynecology
PROC: 0U5B8ZZ Destruction of Endometrium, Via Natural or Artificial Opening Endoscopic (ICD-10-PCS; CPT 58563; principal; 2025-04-07 07:30)
DX: N92.0 Excessive and frequent menstruation with regular cycle (principal); I10 Essential (primary) hypertension; D50.9 Iron deficiency anemia, unspecified; K58.9 Irritable bowel syndrome, unspecified; G47.33 Obstructive sleep apnea (adult) (pediatric); M17.12 Unilateral primary osteoarthritis, left knee; F12.90 Cannabis use, unspecified, uncomplicated; E66.01 Morbid (severe) obesity due to excess calories; Z68.45 Body mass index [BMI] 70 or greater, adult; Z99.89 Dependence on other enabling machines and devices; Z98.890 Other specified postprocedural states; Z87.891 Personal history of nicotine dependence; Z87.42 Personal history of other diseases of the female genital tract; Z80.42 Family history of malignant neoplasm of prostate; Z84.0 Family history of diseases of the skin and subcutaneous tissue
CPT/HCPCS: 58558; 88305; A9270; J1100; J1885; J2003; J2250; J2405; J2704; J3010; J7120